=== PATIENT | female | born 1935 | race Caucasian/White ===

== ENCOUNTER 2016-07-08 11:35 | Emergency (ER) | payer OTHER, MEDICARE ==
[~2016-07-08] VITALS: Ht 149.9 cm; Wt 68.0 kg
[~2016-07-08 11:35] MED LIST: AMITRIPTYLINE H25 M1 PO; ASPIRIN EC81 M1 PO; ATENOLOL25 M1 PO; ATENOLOL50 MG PO; BENTYL10 M1 PO; CALCIUM 600600 M1 PO; CENTRUM SILVER1 TA1 PO; CEPHALEXIN500 MG PO; FLAX OIL1000 MG PO; FOLIC ACID 1 MG PO; FOLIC ACID0.4 MG PO; GARLIC OIL NA1000 MG PO; GLUCOSAMINE500 MG PO; HYDRODIURIL 2525 MG PO; ISOSORBIDE MONO60 M1 PO; LEVOTHYROXINE100 MC1 PO; LOVAZA1 GM PO; MOVE FREE ULTRA PO; NITROSTAT0.4 M1 SL; NORVASC5 M1 PO; PROTONIX40 M3 PO; RANEXA500 M1 PO; RESTORIL15 MG PO; SERTRALINE HYDR50 MG PO; SIMVASTATIN20 MG PO; TRAMADOL HCL50 M1 PO; TRAZODONE HCL50 M1 PO; VITAMIN D31000 IU PO; ZOCOR 10MG TAB10 MG PO; ZOFRAN4 M2 PO
--- NOTE | 2016-07-08 12:50 | ED MVC/FALL/TRAUMA COMPLAINT ---
History of Present Illness General Chief Complaint: Fall Stated Complaint: S/P FALL LAST PM Vital Signs & Intake/Output Vital Signs & Intake/Output Vital Signs Date Time Temp Pulse Resp B/P Pulse O2 O2 Flow FiO2 Ox Delivery Rate 07/08 1145 97.8 55 16 137/54 97 Room Air Allergies Coded Allergies: NO KNOWN ALLERGIES (04/25/16) Reconcile Medications Amlodipine (Norvasc 5MG Tab) 5 MG TAB 1 TAB PO DAILY HTN (Reported) Aspirin (Ecotrin) 81 MG ECT 1 TAB PO DAILY HEART/BLOOD (Reported) Atenolol 25 MG TAB 1 TAB PO BID BP (Reported) Calcium Carbonate (Calcium 600) 600 MG TAB 600 MG PO DAILY BONE HEALTH ( Reported) Cholecalciferol (Vitamin D3) 1,000 IU TAB 1 TAB PO DAILY SUPPLEMENT (Reported ) Dicyclomine Hydrochloride (Bentyl) 10 MG CAPSULE 1 CAP PO TID GASTROENTERITIS Folic Acid 0.4 MG TAB 1 TAB PO DAILY SUPPLEMENT (Reported) Hydrochlorothiazide (Hydrodiuril 25 MG Tab) 25 MG TAB 1 TAB PO DAILY BLOOD PRESSURE (Reported) Isosorbide Mononitrate [address] 60 MG PO DAILY ANGINA (Reported) Levothyroxine Sodium 0.1 MG TAB 1 TAB PO DAILY THYROID PROBLEMS (Reported) Multivitamin, Minerals, and (Centrum Silver) 1 TAB TAB 1 TAB PO DAILY VITAMIN SUPPORT (Reported) Nitroglycerin (Nitrostat) 0.4 MG TAB 1 TAB SL AD PRN CHEST PAIN (Reported) Ondansetron HCl (Zofran) 4 MG TABLET 1 TAB PO Q6-8P PRN NAUSEA Pantoprazole Sodium (Protonix) 40 MG TAB 1 TAB PO DAILY ACID REFLUX (Reported ) Ranolazine (Ranexa 500MG) 500 MG TAB 1 TAB PO BID ANGINA (Reported) Simvastatin (Zocor) 20 MG TAB 20 MG PO QHS CHOLESTEROL (Reported) Tramadol HCl 50 MG TABLET 1 TAB PO BIDP PRN PAIN TRAZODONE HCL (Trazodone HCl) 50 MG TAB 1 TAB PO QHS SLEEP (Reported) Triage Note: PT FELL LAST EVENING PT STATES SHE IS HAVING RIGHT KNEE PAIN NOW. PT DOES NOT REMEMBER IF SHE HIT HER HEAD OR NOT. PT HAS BEEN FALLING A LOT LATELY PER HER DAUGHTER. 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 History of MRSA: No History of VRE: No History of CDIFF: No Influenza Vaccine: 03/23/16 Surgical History Surgical History: CABG, CARDIAC STENTS Psychosocial History Who do you live with Spouse Services at Home None What is your primary language Upper Sorbian Tobacco Use: Quit >30 days ago ETOH Use: denies use Illicit Drug Use: denies illicit drug use Family History Family History, If Any: DAUGHTER Cardiac pacemaker BROTHER FH: colon cancer FH: myocardial infarction Departure Departure Condition: Stable Referrals: NABILA HOUSER,TRISTEN Barger (PCP/Family) Departure Forms: Customer Survey General Discharge Information
--- NOTE | 2016-07-08 12:54 | ED MVC/FALL/TRAUMA COMPLAINT ---
History of Present Illness General Chief Complaint: Fall Stated Complaint: S/P FALL LAST PM Source: patient, family (DAUGHTER) Exam Limitations: no limitations Vital Signs & Intake/Output Vital Signs & Intake/Output Vital Signs Date Time Temp Pulse Resp B/P Pulse O2 O2 Flow FiO2 Ox Delivery Rate 07/08 1543 97.6 53 16 137/63 94 Room Air 07/08 1145 97.8 55 16 137/54 97 Room Air ED Intake and Output 07/09 0000 07/08 1200 Intake Total Output Total Balance Patient 150 lb Weight Allergies Coded Allergies: NO KNOWN ALLERGIES (04/25/16) Reconcile Medications Amlodipine (Norvasc 5MG Tab) 5 MG TAB 1 TAB PO DAILY HTN (Reported) Aspirin (Ecotrin) 81 MG ECT 1 TAB PO DAILY HEART/BLOOD (Reported) Atenolol 25 MG TAB 1 TAB PO BID BP (Reported) Cephalexin (Keflex) 500 MG CAPSULE 1 CAP PO TID UTI Citalopram Hydrobromide (Citalopram HBr) 20 MG TABLET 1 TAB PO DAILY MENTAL HEALTH (Reported) Dicyclomine HCl 10 MG CAPSULE 1 CAP PO PRN ABD CRAMPS (Reported) Isosorbide Mononitrate [address] 60 MG PO DAILY ANGINA (Reported) Levothyroxine Sodium 0.1 MG TAB 1 TAB PO DAILY THYROID PROBLEMS (Reported) Mirtazapine 15 MG TABLET 1 TAB PO QPM SLEEP/MENTAL HEALTH (Reported) Nitroglycerin (Nitrostat) 0.4 MG TAB 1 TAB SL AD PRN CHEST PAIN (Reported) Oxycodone HCl/Acetaminophen (Percocet 5-325 MG Tablet) 5 MG-325 MG TABLET 1 TAB PO Q8 PRN PAIN Pantoprazole Sodium (Protonix) 40 MG TAB 1 TAB PO DAILY ACID REFLUX (Reported ) Ranolazine (Ranexa 500MG) 500 MG TAB 1 TAB PO BID ANGINA (Reported) Trazodone HCl 50 MG TABLET 1 TAB PO QPM SLEEP (Reported) Triage Note: PT FELL LAST EVENING PT STATES SHE IS HAVING RIGHT KNEE PAIN NOW. PT DOES NOT REMEMBER IF SHE HIT HER HEAD OR NOT. PT HAS BEEN FALLING A LOT LATELY PER HER DAUGHTER. Triage Nurses Notes Reviewed? yes HPI: Patient is an 81-year-old female presents complaining of right knee pain, left shoulder pain, headache, neck pain status post fall. Patient reports she was walking yesterday when she fell injuring her right knee. Increasing pain and swelling since the fall. Pain is currently severe, worsens with movement and palpation. Patient's daughter reports that patient has been falling frequently over the past few weeks. Patient is unsure if she struck her head when she fell. Patient was on the floor for a short period of time. Patient has not taken any medication for her symptoms prior to arrival. Patient denies lightheadedness, near syncope, syncope prior to fall. (GARIMA RODRIGUEZ) Past History Travel History Traveled to [place] past 21 day No Medical History Any Pertinent Medical History? 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 No (GARIMA RODRIGUEZ) Review of Systems Review of Systems Constitutional: Reports: no symptoms, weakness. Eyes: Reports: no symptoms. Ears, Nose, Throat, Mouth: Reports: no symptoms. Respiratory: Denies: cough, short of breath. Cardiovascular: Denies: chest pain, syncope. Gastrointestinal/Abdominal: Denies: abdominal pain, vomiting. Genitourinary: Reports: frequency (incontinence). Musculoskeletal: Reports: see HPI. Skin: Reports: no symptoms. Neurological/Psychological: Reports: headache. (GRAIMA RODRIGUEZ) Physical Exam Physical Exam General Appearance: well developed/nourished, alert, awake Head: atraumatic, normal appearance Eyes: Bilateral: normal appearance, PERRL, EOMI. Ears, Nose, Throat, Mouth: hearing grossly normal, moist mucous membrane Neck: normal inspection, supple, full range of motion Respiratory: normal breath sounds, chest non-tender, no respiratory distress, lungs clear Cardiovascular: regular rate/rhythm Peripheral Pulses: 2+ dorsalis pedis (R), 2+ dorsalis pedis (L) Gastrointestinal: soft, non-tender Back: normal inspection, normal range of motion, no vertebral tenderness Extremities: TENDERNESS AND MODERATE SWELLING RIGHT ANTERIOR KNEE. pAIN INCREASES WITH KNEE FLEXION. 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 No Severe Sepsis Present: No Septic Shock Present: No (DARRIN DING,GARIMA) Progress Differential Diagnosis: aoritic dissection, abd injury, C/T/L spine injury, ext injury, ICH, pelvis injury, pnemothorax, spinal cord injury, UTI, dehydration, electrolyte abnormality, anemia Plan of Care: Orders Procedure Date/time Status Add-on Test (ER Only) 07/08 1455 Active Straight Cath 07/08 1313 Active CULTURE,URINE 07/08 1313 Active URINALYSIS 07/08 1313 Complete COMPREHENSIVE METABOLIC PANEL 07/08 1313 Complete CBC WITHOUT DIFFERENTIAL 07/08 1313 Complete Laboratory Tests 07/08/16 1420: Urine Color SANDRITA, Urine Clarity CLDY H, Urine pH 6.5, Ur Specific [place] 1.020, Urine Protein 30 H, Urine Ketones NEG, Urine Nitrite POS H, Urine Bilirubin NEG, Urine Urobilinogen 1.0, Ur Leukocyte Esterase LARGE H, Ur Microscopic SEDIMENT EXAMINED, Urine RBC 25-50 H, Urine WBC PACKD H, Ur Epithelial Cells RARE, Urine Hemoglobin MOD H, Urine Glucose NEG 07/08/16 1401: Anion Gap 8, Estimated GFR > 60, BUN/Creatinine Ratio 20.0, Glucose 87, Calcium 9.2, Total Bilirubin 0.6, AST 18, ALT 26, Alkaline Phosphatase 85, Total Protein 6.9, Albumin 3.7, Globulin 3.2, Albumin/Globulin Ratio 1.2, CBC w Diff NO MAN DIFF REQ, RBC 4.32, MCV 89.8, MCH 29.9, RDW 14.2, MPV 8.4, Gran % 68.5, Lymphocytes % 20.6, Monocytes % 8.7, Eosinophils % 1.7, Basophils % 0.5, Absolute Granulocytes 5.9, Absolute Lymphocytes 1.8, Absolute Monocytes 0.8 H, Absolute Eosinophils 0.1, Absolute Basophils 0, PUBS MCHC 33.3 Microbiology 07/083 URINE ROUT: Urine Culture - RECD 1600: Results of labs discussed and imaging discussed with patient and her daughter. Bulky lowe dressing placed by [facility]. Patient reports continues with pain to her right knee. Patient ambulated with walker, with very slow gait. Daughter concerned that patient will not use walker at home and continue to fall. Able to bear weight on right knee. Discussed with case management to evaluate patient and speak with daughter. 1700: Seen by case management. Home health services to be set up including visiting nursing and home PT, possible home health aid. (DARRIN DING,GARIMA) Diagnostic Imaging: Viewed by Me: Radiology Read, CT Scan. Discussed w/RAD: Radiology Read, CT Scan. Radiology Impression: PATIENT: DEEDEE MOROCHO PRESENT AGE: 81 PATIENT ACCOUNT NO: [id number] : 34 LOCATION: [facility] ORDERING PHYSICIAN: GRAIMA DING SERVICE DATE: 07/08/16 EXAM TYPE: CAT - CT HEAD WO IV CONTRAST EXAMINATION: CT HEAD WITHOUT CONTRAST CLINICAL INFORMATION: Fall. Possibly Hit head. Headache. COMPARISON: None. TECHNIQUE: Contiguous axial imaging was performed from the skull base to vertex without intravenous administration of contrast. FINDINGS: There is no evidence of acute intracranial hemorrhage or territorial infarction. No abnormal mass effect or midline shift is seen. Parish to white matter differentiation is well preserved. No extra-axial fluid collections are identified. There is atrophy with prominence of the ventricles and the sulci and hypodensity of the periventricular white matter due to chronic small vessel ischemic disease. There is vascular calcifications of the internal carotid arteries bilaterally. The osseous structures and soft tissues are normal. The mastoid air cells and visualized portions of the paranasal sinuses are well aerated. IMPRESSION: No acute intracranial pathology. DICTATED BY: RADHA POSADAS MD DATE/TIME DICTATED:1458 REMOTE RECRUITER:TIM DATE/TIME TRANSCRIBED:07/08/161458 CONFIDENTIAL, DO NOT COPY WITHOUT APPROPRIATE AUTHORIZATION. <Electronically signed in Other Vendor System> SIGNED BY: RADHA POSADAS MD 07/08/16 1510, PATIENT: DEEDEE MOROCHO PRESENT AGE: 81 PATIENT ACCOUNT NO: [id number] : 34 LOCATION: [facility] ORDERING PHYSICIAN: GARIMA DING SERVICE DATE: 07/08/16 EXAM TYPE: CAT - CT CERV SPINE WO IV CONTRAST EXAMINATION: CT CERVICAL SPINE WITHOUT CONTRAST CLINICAL INFORMATION : Fall, assess for fracture or bleed. COMPARISON: None. TECHNIQUE: A noncontrast axial CT scan of the cervical spine was obtained. Coronal and sagittal reformatted images were generated at the acquisition workstation. DLP: Total 898.8 mGy-cm. (Including head CT). FINDINGS: There is a degenerative anterolisthesis of C4 on C5 secondary to severe facet arthropathy. There is narrowing of intervertebral disc height at C5-C6 with marginal endplate changes. There are no compression fractures and vertebral body heights are maintained. Bone mineralization appears mildly diffusely decreased. The prevertebral soft tissues are unremarkable. There are atheromatous calcifications of the parotid arteries. 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 The lateral masses of C1 and C2 are normally aligned in the dens is intact. Atlantooccipital alignment is maintained. There is multilevel foraminal narrowing from uncovertebral osteophytosis and facet arthropathy. The cervicomedullary junction and spinal cord are grossly unremarkable. The imaged lung apices are clear. IMPRESSION: 1. There are no acute fractures or subluxations. 2. Multilevel spondylosis is demonstrated with foraminal narrowing and facet arthropathy. There is a degenerative anterolisthesis of C4 on C5 secondary to facet arthropathy. DICTATED BY: LALA ENRIQUEZ MD DATE/TIME DICTATED: 07/08/161458 REMOTE RECRUITER:TIM DATE/TIME TRANSCRIBED:07/08/161458 CONFIDENTIAL, DO NOT COPY WITHOUT APPROPRIATE AUTHORIZATION. <Electronically signed in Other Vendor System> SIGNED BY: LALA ENRIQUEZ MD 07/08/16 1509, PATIENT: DEEDEE MOROCHO PRESENT AGE: 81 PATIENT ACCOUNT NO: [id number] : 34 LOCATION: [facility] ORDERING PHYSICIAN: GARIMA DING SERVICE DATE: 07/08/16 EXAM TYPE: RAD - XRY-KNEE COMPLETE RIGHT; XRY-SHOULDER COMPLETE-LEFT EXAMINATION: XR KNEE, RIGHT XR SHOULDER, LEFT CLINICAL INFORMATION: Fall, pain. COMPARISON: None. TECHNIQUE: Right knee 4 views. Left shoulder 3 views. FINDINGS: Right knee: Moderate to severe medial compartment arthritis with joint space loss, marginal osteophytes, subchondral sclerosis. There is slight undulation of the articular surface of the medial femoral condyle. This may be chronic in the setting of degenerative changes. Moderate lateral compartment arthritis with marginal osteophytes. Chondrocalcinosis in lateral compartment. At least mild patellofemoral arthritis. Bones are osteopenic. No acute fractures are seen. Small effusion. Quadriceps tendon insertional spurring. Left shoulder: Humeral head articulates with the glenoid. There appears be mild glenohumeral joint degeneration. There is lucency and spurring in the lateral humeral head/greater tuberosity, appearing degenerative. Mild to moderate AC joint arthritis. No evidence of acute fracture. Small density adjacent to inferior glenoid, from spurring or perhaps loose body in this region. No suspicious soft tissue calcification. IMPRESSION: Right knee: 1. Tricompartment arthritis. Moderate to severe medial compartment arthritis. Small effusion. 2. Slight undulation of the articular surface of the medial femoral condyle. This may be related to the arthritic changes. Fracture superimposed on chronic changes is difficult to exclude. Close clinical correlation. Further evaluation with MRI as clinically warranted. Left shoulder: 1. No radiographic evidence of acute fracture. 2. Mild glenohumeral joint and AC joint arthritis. 3. Degenerative changes in the region of the greater tuberosity. DICTATED BY: VAIBHAV PEREZ MD DATE/TIME DICTATED:07/08/161425 REMOTE RECRUITER:TIM DATE/TIME TRANSCRIBED:07/08/161425 CONFIDENTIAL, DO NOT COPY WITHOUT APPROPRIATE AUTHORIZATION. <Electronically signed in Other Vendor System> SIGNED BY: VAIBHAV PEREZ MD 07/08/16 8498 (GARIMA RODRIGUEZ) Departure Departure Disposition: HOME OR SELF CARE Condition: Stable Clinical Impression Primary Impression: Urinary tract infection Qualifiers: Urinary tract infection type: site unspecified Hematuria presence: without hematuria Qualified Code: N39.0 - Urinary tract infection, site not specified Secondary Impressions: Left shoulder strain Qualifiers: Encounter type: initial encounter Qualified Code: S46.912A - Strain of unspecified muscle, fascia and tendon at shoulder and upper arm level, left arm, initial encounter Right knee sprain Qualifiers: Encounter type: initial encounter Involved ligament of knee: unspecified ligament Qualified Code: S83.91XA - Sprain of unspecified site of right knee, initial encounter Referrals: NABILA HOUSER,TRISTEN Barger (PCP/Family) Additional Instructions: Follow up with your orthopedist at [facility] for further evaluation of the knee pain and shoulder pain. Follow up with Dr. Hall this week for further evaluation of the frequent falls. Rest, ice for 20 minutes 4-5 times a day, wear the bulky wrap to the right knee for support. Use the walker to aid with ambulation. Departure Forms: Customer Survey General Discharge Information Prescriptions: Current Visit Scripts Cephalexin (Keflex) 1 CAP PO TID #21 CAP Oxycodone HCl/Acetaminophen (Percocet 5-325 MG Tablet) 1 TAB PO Q8 PRN PAIN #10 TAB (GARIMA RODRIGUEZ) [employer] Co-Sign Statement Statement: ED Attending supervision documentation- [X] I saw and evaluated the patient. I have also reviewed all the pertinent lab results and diagnostic results. I agree with the findings and the plan of care as documented in the PA's[employer]'s documentation. [X] I have reviewed the ED Record and agree with the PA's[employer]'s documentation. [] Additions or exceptions (if any) to the PAs[employer]'s note and plan are summarized below: [] (MARK HOUSER,LEROY)
[2016-07-08 14:11] LABS: ABSOLUTE BASOPHIL COUNT 0 /CUMM (0.0-0.2); ABSOLUTE EOSINOPHIL COUNT 0.1 /CUMM (0.0-0.7); ABSOLUTE GRANULOCYTE CT 5.9 /CUMM (1.4-6.5); ABSOLUTE LYMPH COUNT 1.8 /CUMM (1.2-3.4); ABSOLUTE MONOCYTE COUNT 0.8 /CUMM (0.10-0.60); BASOPHIL % 0.5 % (0.0-2.0); EOSINOPHIL % 1.7 % (0-5); GRANULOCYTE % 68.5 % (42.2-75.2); HEMATOCRIT 38.8 % (37-47); MEAN CORPUSCULAR HGB 29.9 PG (27.0-31.0); MEAN CORPUSCULAR HGB CONC 33.3 G/DL (33.0-37.0); MEAN CORPUSCULAR VOLUME 89.8 FL (81.0-99.0); MEAN PLATELET VOLUME 8.4 FL (7.4-10.4); PLATELET COUNT 194 /CUMM (130-400); RBC DISTRIBUTION WIDTH 14.2 % (11.5-14.5); RED BLOOD CELL CT 4.32 /CUMM (4.20-5.40); WHITE BLOOD CELL COUNT 8.7 /CUMM (4.8-10.8)
--- NOTE | 2016-07-08 15:08 | RADIOLOGY REPORT ---
EXAMINATION: XR KNEE, RIGHT XR SHOULDER, LEFT CLINICAL INFORMATION: Fall, pain. COMPARISON: None. TECHNIQUE: Right knee 4 views. Left shoulder 3 views. FINDINGS: Right knee: Moderate to severe medial compartment arthritis with joint space loss, marginal osteophytes, subchondral sclerosis. There is slight undulation of the articular surface of the medial femoral condyle. This may be chronic in the setting of degenerative changes. Moderate lateral compartment arthritis with marginal osteophytes. Chondrocalcinosis in lateral compartment. At least mild patellofemoral arthritis. Bones are osteopenic. No acute fractures are seen. Small effusion. Quadriceps tendon insertional spurring. Left shoulder: Humeral head articulates with the glenoid. There appears be mild glenohumeral joint degeneration. There is lucency and spurring in the lateral humeral head/greater tuberosity, appearing degenerative. Mild to moderate AC joint arthritis. No evidence of acute fracture. Small density adjacent to inferior glenoid, from spurring or perhaps loose body in this region. No suspicious soft tissue calcification. IMPRESSION: Right knee: 1. Tricompartment arthritis. Moderate to severe medial compartment arthritis. Small effusion. 2. Slight undulation of the articular surface of the medial femoral condyle. This may be related to the arthritic changes. Fracture superimposed on chronic changes is difficult to exclude. Close clinical correlation. Further evaluation with MRI as clinically warranted. Left shoulder: 1. No radiographic evidence of acute fracture. 2. Mild glenohumeral joint and AC joint arthritis. 3. Degenerative changes in the region of the greater tuberosity.
--- NOTE | 2016-07-08 15:09 | CT SCAN REPORT ---
EXAMINATION: CT CERVICAL SPINE WITHOUT CONTRAST CLINICAL INFORMATION: Fall, assess for fracture or bleed. COMPARISON: None. TECHNIQUE: A noncontrast axial CT scan of the cervical spine was obtained. Coronal and sagittal reformatted images were generated at the acquisition workstation. DLP: Total 898.8 mGy-cm. (Including head CT). FINDINGS: There is a degenerative anterolisthesis of C4 on C5 secondary to severe facet arthropathy. There is narrowing of intervertebral disc height at C5-C6 with marginal endplate changes. There are no compression fractures and vertebral body heights are maintained. Bone mineralization appears mildly diffusely decreased. The prevertebral soft tissues are unremarkable. There are atheromatous calcifications of the parotid arteries. 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 The lateral masses of C1 and C2 are normally aligned in the dens is intact. Atlantooccipital alignment is maintained. There is multilevel foraminal narrowing from uncovertebral osteophytosis and facet arthropathy. The cervicomedullary junction and spinal cord are grossly unremarkable. The imaged lung apices are clear. IMPRESSION: 1. There are no acute fractures or subluxations. 2. Multilevel spondylosis is demonstrated with foraminal narrowing and facet arthropathy. There is a degenerative anterolisthesis of C4 on C5 secondary to facet arthropathy.
--- NOTE | 2016-07-08 15:10 | CT SCAN REPORT ---
EXAMINATION: CT HEAD WITHOUT CONTRAST CLINICAL INFORMATION: Fall. Possibly Hit head. Headache. COMPARISON: None. TECHNIQUE: Contiguous axial imaging was performed from the skull base to vertex without intravenous administration of contrast. FINDINGS: There is no evidence of acute intracranial hemorrhage or territorial infarction. No abnormal mass effect or midline shift is seen. Parish to white matter differentiation is well preserved. No extra-axial fluid collections are identified. There is atrophy with prominence of the ventricles and the sulci and hypodensity of the periventricular white matter due to chronic small vessel ischemic disease. There is vascular calcifications of the internal carotid arteries bilaterally. The osseous structures and soft tissues are normal. The mastoid air cells and visualized portions of the paranasal sinuses are well aerated. IMPRESSION: No acute intracranial pathology.
[2016-07-08 15:43] VITALS: BP 137/63
[2016-07-08] MEDS ORDERED: CITALOPRAM HBR20 MG PO (15:50)
[2016-07-08] MEDS ORDERED: MIRTAZAPINE15 M2 PO (15:52)
[2016-07-08] MEDS ORDERED: DICYCLOMINE HCL10 M1 PO (15:53)
[2016-07-08] MEDS ORDERED: PERCOCET 5-3251 EACH PO (16:57)
[2016-07-08] MEDS ORDERED: KEFLEX500 M1 PO (16:57)
== END 2016-07-08 17:00 ==
LOC: ERH 11:35
PROVIDERS: Physician Assistant
DX: S83.91XA Sprain of unspecified site of right knee, initial encounter (principal); S46.912A Strain of unspecified muscle, fascia and tendon at shoulder and upper arm level, left arm, initial encounter; N39.0 Urinary tract infection, site not specified; M54.2 Cervicalgia; W19.XXXA Unspecified fall, initial encounter; Y93.01 Activity, walking, marching and hiking
CPT/HCPCS: 73030-LT; 73562-RT; 81001; 87086

== ENCOUNTER 2016-07-09 12:40 | Emergency (ER) | payer OTHER, MEDICARE ==
[~2016-07-09] VITALS: Ht 149.9 cm; Wt 64.0 kg
[~2016-07-09 12:40] MED LIST changes: +CITALOPRAM HBR20 MG PO; +DICYCLOMINE HCL10 M1 PO; +KEFLEX500 M1 PO; +MIRTAZAPINE15 M2 PO; +PERCOCET 5-3251 EACH PO
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
[2016-07-09 16:18] VITALS: BP 142/70
== END 2016-07-09 16:19 ==
LOC: ERH 12:40
DX: N39.0 Urinary tract infection, site not specified (principal)
CPT/HCPCS: 97116-GP; 97161-GP; G8978-GP; G8979-GP; G8980-GP

== ENCOUNTER 2016-09-20 15:55 | Emergency (ER) | payer OTHER, MEDICARE ==
[~2016-09-20] VITALS: Ht 149.9 cm; Wt 68.0 kg
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
[2016-09-20 18:07] VITALS: BP 115/84
== END 2016-09-20 18:08 ==
LOC: ERH 15:55
DX: S16.1XXA Strain of muscle, fascia and tendon at neck level, initial encounter (principal); V49.50XA Passenger injured in collision with unspecified motor vehicles in traffic accident, initial encounter; Y93.9 Activity, unspecified; Y92.488 Other paved roadways as the place of occurrence of the external cause

== ENCOUNTER 2016-09-22 14:15 | Emergency (ER) | payer OTHER, MEDICARE ==
[~2016-09-22] VITALS: Ht 151.1 cm; Wt 68.0 kg
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
[2016-09-22 16:04] VITALS: BP 125/68
== END 2016-09-22 16:05 ==
LOC: ERH 14:15
DX: S20.211A Contusion of right front wall of thorax, initial encounter (principal); R07.9 Chest pain, unspecified; V89.2XXD Person injured in unspecified motor-vehicle accident, traffic, subsequent encounter

== ENCOUNTER 2016-11-10 19:55 | Inpatient (IN) | payer OTHER, MEDICARE ==
[~2016-11-10] VITALS: Ht 149.9 cm; Wt 64.9 kg
--- NOTE | 2016-11-10 20:01 | ED CARDIAC/CP/PALPITATIONS ---
See Addendum History of Present Illness General Chief Complaint: Chest Pain Stated Complaint: "PER EMS CP" Source: patient, EMS Exam Limitations: no limitations Vital Signs & Intake/Output Vital Signs & Intake/Output Vital Signs Date Time Temp Pulse Resp B/P B/P Pulse O2 O2 Flow FiO2 Mean Ox Delivery Rate 11/10 2204 97.4 67 18 147/72 94 Room Air 11/10 2001 97.8 67 18 138/65 96 Allergies Coded Allergies: acetaminophen (PER MAR - UNKNOWN REACTION 11/10/16) Reconcile Medications Amlodipine Besylate (Norvasc) 5 MG TABLET 1 TAB PO DAILY HTN (Reported) Aspirin (Ecotrin*) 81 MG TABLET.DR 1 TAB PO DAILY HEART HEALTH (Reported) Atenolol 25 MG TABLET 1 TAB PO DAILY BP (Reported) Bisacodyl (Dulcolax) 10 MG SUPP.RECT 1 SUP RC PRN CONSTIPATION (Reported) Isosorbide Mononitrate (Isosorbide Mononitrate ER) 60 MG TAB.ER.24H 1 TAB PO DAILY ANGINA (Reported) Levothyroxine Sodium 100 MCG TABLET 1 TAB PO DAILY AC THYROID (Reported) Magnesium Hydroxide (Milk Of Magnesia) 400 MG/5 ML ORAL.SUSP 30 ML PO PRN CONSTIPATION (Reported) Mirtazapine 15 MG TABLET 1 TAB PO QPM SLEEP/MENTAL HEALTH (Reported) Na Phos,M-B/Na Phos,Di-Ba (Fleet Enema) 19 GRAM-7 GRAM/118 ML ENEMA 1 E RC PRN CONSTIPATION (Reported) Nitroglycerin (Nitrostat) 0.4 MG TAB.SUBL 1 TAB SL AD PRN CHEST PAIN ( Reported) 1st sign of attack; may repeat every 5 minutes until relief; if pain persists after 3 tablets in 15 minutes, prompt medical att Pantoprazole Sodium (Protonix) 40 MG TABLET.DR 1 TAB PO DAILY ACID REFLUX ( Reported) Ranolazine (Ranexa) 500 MG TAB.ER.12H 1 TAB PO BID ANGINA (Reported) Sertraline HCl 50 MG TABLET 1 TAB PO DAILY MENTAL HEALTH (Reported) Simvastatin (Simvastatin*) 20 MG TABLET 1 TAB PO QPM CHOLESTEROL (Reported) Trazodone HCl 50 MG TABLET 1 TAB PO TID AGITATION (Reported) Triage Nurses Notes Reviewed? yes Onset: Gradual Duration: hour(s):, waxing and waning Timing: single episode today Location: central Radiation: LEFT AND RIGHT ARM Activities at Onset: none Nitro Today/Relief: 0.4 mg x 3, provided by EMS, complete relief Aspirin Today: 325 mg x 1, provided by EMS Associated Symptoms: diaphoresis, dizziness HPI: 81 yo woman h/o cabg, cad, presents with several hours of sub sternal chest pressure, intermittent, since this morning, with radiation down left arm. 911 was called. The medics gave her nitro x 3, with complete resolution. Asa 325mg x 1 given by medics. She reports no pain, no diaphoresis, no shortness of breath at present. Past History Travel History Traveled to [place] past 21 day No Medical History Any Pertinent Medical History? 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 No Review of Systems Review of Systems Constitutional: Reports: no symptoms. EENTM: Reports: no symptoms. Respiratory: Reports: no symptoms. Cardiovascular: Reports: no symptoms. GI: Reports: no symptoms. Genitourinary: Reports: no symptoms. Musculoskeletal: Reports: no symptoms. Skin: Reports: no symptoms. Neurological/Psychological: Reports: no symptoms. Hematologic/Endocrine: Reports: no symptoms. Immunologic/Allergic: Reports: no symptoms. All Other Systems: Reviewed and Negative Physical Exam Physical Exam General Appearance: well developed/nourished, mild distress Head: atraumatic, normal appearance Eyes: Bilateral: normal appearance. Ears, Nose, Throat: normal pharynx Neck: normal inspection, supple, full range of motion Respiratory: normal breath sounds Cardiovascular: regular rate/rhythm Gastrointestinal: normal bowel sounds Back: normal inspection, normal range of motion Extremities: normal inspection, normal capillary refill, bilateral 2+ non pitting edema Neurologic/Psych: no motor/sensory deficits, awake, alert, oriented x 3 Skin: intact, normal color, warm/dry Core Measures ACS in differential dx? Yes ASA ordered for poss ACS? Yes-ordered, PT RECEIVED ASPIRIN EN ROUTE VIA MEDICS. Severe Sepsis Present: No Septic Shock Present: No Progress Differential Diagnosis: AMI, unstable angina Plan of Care: Orders Procedure Date/time Status URINALYSIS 11/10 2245 Complete EKG 11/10 2026 Active TROPONIN LEVEL 11/10 2000 Complete PARTIAL THROMBOPLASTIN TIME 11/10 2000 Complete PROTHROMBIN TIME 11/10 2000 Complete D-DIMER 11/10 2000 Complete COMPREHENSIVE METABOLIC PANEL 11/10 2000 Complete CBC WITHOUT DIFFERENTIAL 11/10 2000 Complete EKG 11/10 1957 Active Current Medications Sig/Blanka Start time Last Medication Dose Stop Time Status Admin Heparin Sodium 25,000 UNIT Q24H 11/10 2229 UNVr (Porcine) (Heparin) Sodium Chloride 500 ML Laboratory Tests 11/10/162244: Urine Color YEL, Urine Clarity HAZY H, Urine pH 6.0, Ur Specific [place] <= 1.005, Urine Protein NEG, Urine Ketones NEG, Urine Nitrite POS H, Urine Bilirubin NEG, Urine Urobilinogen 0.2, Ur Leukocyte Esterase LARGE H, Ur Microscopic SEDIMENT EXAMINED, Urine RBC RARE, Urine WBC 15-25 H, Ur Epithelial Cells FEW, Urine Bacteria MANY H, Hyaline Casts RARE H, Urine Mucus FEW, Urine Hemoglobin NEG, Urine Glucose NEG 11/10/162033: Anion Gap 12, Estimated GFR 60, BUN/Creatinine Ratio 15.6, Glucose 97, Calcium 9.0, Total Bilirubin 0.4, AST 15, ALT 33, Alkaline Phosphatase 103, Troponin I < 0.01, Total Protein 6.6, Albumin 3.6, Globulin 3.0, Albumin/Globulin Ratio 1.2, PT 11.9, INR 1.13, APTT 35, D-Dimer 345 H, CBC w Diff NO MAN DIFF REQ, RBC 3.92 L, MCV 92.0, MCH 30.4, RDW 13.0, MPV 8.3, Gran % 57.8, Lymphocytes % 26.8, Monocytes % 11.7 H, Eosinophils % 2.7, Basophils % 1.0, Absolute Granulocytes 4.6, Absolute Lymphocytes 2.1, Absolute Monocytes 0.9 H, Absolute Eosinophils 0.2, Absolute Basophils 0.1, PUBS MCHC 33.0 Diagnostic Imaging: Viewed by Me: Radiology Read. Discussed w/RAD: Radiology Read. CXR Impression: vascular congestion... full report below. Initial ED EKG: AFIB, new onset afib compared to prior Repeat EKG: unchanged Comments: PATIENT: DEEDEE MOROCHO PRESENT AGE: 81 PATIENT ACCOUNT NO: [id number] : 34 LOCATION: [facility] ORDERING PHYSICIAN: BELIA PINK MD SERVICE DATE: 11/10/16 EXAM TYPE: RAD - XRY-PORTABLE CHEST XRAY EXAMINATION: CHEST 1 VIEW CLINICAL INFORMATION: Chest pain. COMPARISON: 09/02/2015. TECHNIQUE: An AP view of the chest is provided. FINDINGS: The cardiac silhouette is stable. Intact midline sternal wires are present. There is interstitial prominence present throughout both lungs. The mediastinal and hilar contours are unremarkable. There are neither pleural effusions nor pneumothoraces. There are no consolidations. The osseous structures are unremarkable. IMPRESSION: Interstitial prominence throughout both lungs likely insurance sales representative of vascular congestion. No consolidations. DICTATED BY: UVALDO WATERS MD DATE/TIME DICTATED:11/10/162115 OLIVE GROWER:TIM DATE/TIME TRANSCRIBED:11/10/162115 CONFIDENTIAL, DO NOT COPY WITHOUT APPROPRIATE AUTHORIZATION. <Electronically signed in Other Vendor System> SIGNED BY: UVALDO WATERS MD 11/10/162119 Departure Departure Disposition: HOME OR SELF CARE Condition: Stable Clinical Impression Primary Impression: Unstable angina Secondary Impressions: Congestive heart failure, New onset atrial fibrillation Referrals: NABILA HOUSER,TRISTEN Barger (PCP/Family) Departure Forms: Customer Survey General Discharge Information Comments 11/10/16, 22:20... discussed with dr. enriquez... will start pt on heparin for new onset afib... pt also with nitro reponsive chest pain consistent with unstable angina. Admission Note Spoke With: PREETI MUJICA MD Documentation of Exam: Documentation of any treatments & extenuating circumstances including Concerns Regarding Discharge (functional status, medication knowledge or non-compliance, living conditions, etc.) that warrant an admission rather than observation: PT WITH CAD AND NITRO RESPONSIVE CHEST PAIN... ALSO WITH NEW ONSET AFIB. MILD CHF.... PT MERITS MONITORING, RULE OUT, MEDICAL OPTIMIZATION, HEPARIN. Critical Care Note Critical Care Note Critical Care Time: 30-74 min
--- NOTE | 2016-11-10 20:03 | NUR ---
RECEIVED 81 YO FEMALE BIBA FROM [facility] WITH C/O INTERMITTENT LEFT SIDED CHEST PAIN X 3 DAYS, RADIATING TO LEFT ARM. PT WAS MEDICATED AT [facility] WITH NTG S/L X 3 WITH COMPLETE RELIEF OF PAIN. PT MEDICATED WITH 324 MG ASA PO BY PARAMEDICS. PT CURRENTLY DENIES CHEST PAIN OR SHORTNESS OF BREATH.
--- NOTE | 2016-11-10 20:04 | NUR ---
PT EVALUATED BY DR PINK
[2016-11-10] MEDS ORDERED: SERTRALINE HCL50 MG PO (20:13)
[2016-11-10] MEDS ORDERED: SIMVASTATIN20 M2 PO (20:13)
[2016-11-10] MEDS ORDERED: MILK OF MA400 MG/52 PO (20:16)
[2016-11-10] MEDS ORDERED: FLEET ENEMA133 ML RC (20:17)
[2016-11-10] MEDS ORDERED: DULCOLAX10 M1 RC (20:17)
--- NOTE | 2016-11-10 20:36 | NUR ---
PT BLOOD SENT TO THE LAB LAV,SST,BLUE
[2016-11-10 20:55] LABS: ABSOLUTE BASOPHIL COUNT 0.1 /CUMM (0.0-0.2); ABSOLUTE EOSINOPHIL COUNT 0.2 /CUMM (0.0-0.7); ABSOLUTE GRANULOCYTE CT 4.6 /CUMM (1.4-6.5); ABSOLUTE LYMPH COUNT 2.1 /CUMM (1.2-3.4); ABSOLUTE MONOCYTE COUNT 0.9 /CUMM (0.10-0.60); EOSINOPHIL % 2.7 % (0-5); GRANULOCYTE % 57.8 % (42.2-75.2); HEMATOCRIT 36.1 % (37-47); MEAN CORPUSCULAR HGB 30.4 PG (27.0-31.0); MEAN PLATELET VOLUME 8.3 FL (7.4-10.4); PLATELET COUNT 214 /CUMM (130-400); RED BLOOD CELL CT 3.92 /CUMM (4.20-5.40); WHITE BLOOD CELL COUNT 7.9 /CUMM (4.8-10.8)
[2016-11-10 21:15] LABS: PT 11.9 SEC (9.4-12.5); PTT 35 SEC (25-37)
--- NOTE | 2016-11-10 21:20 | RADIOLOGY REPORT ---
EXAMINATION: CHEST 1 VIEW CLINICAL INFORMATION: Chest pain. COMPARISON: 09/02/2015. TECHNIQUE: An AP view of the chest is provided. FINDINGS: The cardiac silhouette is stable. Intact midline sternal wires are present. There is interstitial prominence present throughout both lungs. The mediastinal and hilar contours are unremarkable. There are neither pleural effusions nor pneumothoraces. There are no consolidations. The osseous structures are unremarkable. IMPRESSION: Interstitial prominence throughout both lungs likely representative phlebotomy services of vascular congestion. No consolidations.
--- NOTE | 2016-11-10 22:12 | NUR ---
RESTING COMF STILL DENIES CP AT THIS TIME BREATHING UNLABORED
--- NOTE | 2016-11-10 22:47 | NUR ---
PT OFF BEDPAN, URINE TRIO SENT
--- NOTE | 2016-11-11 00:41 | NUR ---
RECTAL EXAM NEG PER DR PINK HEPARIN BOLUS FB HEPARIN DRIP. PT REMIANS CONFUSED ABOUT CIRCUMSTANCES SURROUNDING ADMISSION. PT DENIES CP OR SOB. DIAPER REMOVED, ON BEDPAN.
--- NOTE | 2016-11-11 01:15 | History & Physical ---
RAINA OLIVAS 11/11/16 0114: General Information and HPI MD Statement: I have seen and personally examined DEEDEE MOROCHO and documented this H&P. The patient is a 81 year old F who presented with a patient stated chief complaint of [chest pain]. Source of Information: old records, patient giving very vague history Exam Limitations: unable to give history History of Present Illness: This is a 81-year-old female, nonsmoker with past medical history of hypertension, hyperlipidemia coronary artery disease status post stent and CABG, right subclavian stenosis, hypothyroidism, ITP, colonic resection (in the setting of diverticulitis) part in by ambulance from [place] with chief complain of worsening chest pain. Chest pain was gradual in onset, waxing and waning, the pain was present in both the arms as well, she had one single episode today, however she has been having pain on and off since last 3 days however today the pain was relieved by 3 times of nitroglycerin been provided by the EMS. She also complained of associated diaphoresis and dizziness. He was given one time of 325 mg aspirin by the paramedics. She was started on heparin and she was found to be in new onset atrial fibrillation. Allergies/Medications Allergies: Coded Allergies: acetaminophen (PER AUG - UNKNOWN REACTION 11/10/16) Home Med list Amlodipine Besylate (Norvasc) 5 MG TABLET 1 TAB PO DAILY HTN (Reported) Aspirin (Ecotrin*) 81 MG TABLET.DR 1 TAB PO DAILY HEART HEALTH (Reported) Atenolol 25 MG TABLET 1 TAB PO DAILY BP (Reported) Bisacodyl (Dulcolax) 10 MG SUPP.RECT 1 SUP RC PRN CONSTIPATION (Reported) Isosorbide Mononitrate (Isosorbide Mononitrate ER) 60 MG TAB.ER.24H 1 TAB PO DAILY ANGINA (Reported) Levothyroxine Sodium 100 MCG TABLET 1 TAB PO DAILY AC THYROID (Reported) Magnesium Hydroxide (Milk Of Magnesia) 400 MG/5 ML ORAL.SUSP 30 ML PO PRN CONSTIPATION (Reported) Mirtazapine 15 MG TABLET 1 TAB PO QPM SLEEP/MENTAL HEALTH (Reported) Na Phos,M-B/Na Phos,Di-Ba (Fleet Enema) 19 GRAM-7 GRAM/118 ML ENEMA 1 E RC PRN CONSTIPATION (Reported) Nitroglycerin (Nitrostat) 0.4 MG TAB.SUBL 1 TAB SL AD PRN CHEST PAIN ( Reported) 1st sign of attack; may repeat every 5 minutes until relief; if pain persists after 3 tablets in 15 minutes, prompt medical att Pantoprazole Sodium (Protonix) 40 MG TABLET.DR 1 TAB PO DAILY ACID REFLUX ( Reported) Ranolazine (Ranexa) 500 MG TAB.ER.12H 1 TAB PO BID ANGINA (Reported) Sertraline HCl 50 MG TABLET 1 TAB PO DAILY MENTAL HEALTH (Reported) Simvastatin (Simvastatin*) 20 MG TABLET 1 TAB PO QPM CHOLESTEROL (Reported) Trazodone HCl 50 MG TABLET 1 TAB PO TID AGITATION (Reported) Compliance With Home Meds: UNKNOWN Past History Travel History Traveled to [place] past 21 day No Medical History Neurological: NONE EENT: AGUA CALIENTE Cardiovascular: STENTS CABG Respiratory: NONE Gastrointestinal: diverticulitis, COLON RESECTION Hepatic: NONE Renal: NONE Musculoskeletal: NONE, PSEUDOGOUT Psychiatric: anxiety Endocrine: hypothyroidism Blood Disorders: ITP Cancer(s): NONE 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 [facility] Who Do You Live With? spouse Services at Home: None Primary Language: Algerian Smoking Status: Unknown If Ever Smoked ETOH Use: denies use Illicit Drug Use: denies illicit drug use Functional Ability ADLs Independent: dressing, eating, toileting, bathing. Ambulation: independent IADLs Independent: shopping, housework, finances, food prep, telephone, transportation , medication admin. Review of Systems Review of Systems Constitutional: Reports: malaise, weakness. Denies: chills, diaphoresis, fever, unexplained weight loss. EENTM: Denies: blurred vision, double vision, visual changes, eye pain. Cardiovascular: Reports: chest pain, peripheral edema. Denies: edema, orthopena, palpitations, syncope. Respiratory: Denies: cough, hemoptysis, orthopnea, short of breath, sputum production, stridor, wheezing. GI: Denies: abdominal pain, bloating, constipation, diarrhea. Genitourinary: Reports: no symptoms. Musculoskeletal: Reports: no symptoms. Skin: Reports: no symptoms. Neurological/Psychological: Reports: no symptoms. Exam & Diagnostic Data Last 24 Hrs of Vital Signs/I&O Vital Signs Date Time Temp Pulse Resp B/P B/P Pulse O2 O2 Flow FiO2 Mean Ox Delivery Rate 11/10 2204 97.4 67 18 147/72 94 Room Air 11/10 2001 97.8 67 18 138/65 96 Intake & Output 11/11 0800 11/11 0000 11/10 1600 Intake Total Output Total 220 Balance -220 Output, Urine 220 Patient 68.039 kg Weight Weight Estimated Measurement Method Physical Exam General Appearance Alert, Oriented X3, Moderate Distress, very unclear history, vague historian Skin No Rashes, No Breakdown Skin Temp/Moisture Exam: Warm/Dry Sepsis Skin Exam (color): Normal for Ethnicity HEENT Atraumatic, PERRLA, EOMI Neck Supple, No JVD Cardiovascular Normal S1, Normal S2, No Murmurs, irregularly irregular Lungs Clear to Auscultation, Normal Air Movement Abdomen Normal Bowel Sounds, Soft, No Tenderness, No Hepatospenomegaly Extremities mild edema 1+ Vascular Normal Pulses Diagnostic Data EKG Results ?? 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 No consolidations. Assessment/Plan Assessment: In summary, This is a 81-year-old female, nonsmoker with past medical history of hypertension, hyperlipidemia coronary artery disease status post stent and CABG, right subclavian stenosis, hypothyroidism, ITP, colonic resection (in the setting of diverticulitis) part in by ambulance from [place] with chief complain of worsening chest pain relieved with nitroglycerine provided by EMS. Vitals on admission temperature of 97.8, pulse of 67, respiration of 18, blood pressure 147/72, she was 96% saturating on room air. Remained pain-free after receiving the nitroglycerin, Pt was found to have new onset atrial fibrillation while at the emergency department. Count of 7.9, H/H of 11.9/36.1, platelet of 114. LFTs normal, initial set of troponin negative. Echocardiogram in August 2015 normal left ventricular size, EF of 60-65%, no obvious wall motion abnormalities. X-ray showed interstitial prominence throughout both lungs likely it is presently vascular congestion. She received one time of IV Lasix 20 mg at the emergency department. Problem list along with assessment and plan. Problem #1 unstable angina. Problem #2 new onset atrial fibrillation. Problem #3 evidence of vascular congestion on chest x-ray. Problem #4 to rule out ACS. #5 history of hypothyroidism. Problem #6 history of hypertension. Problem #7 history of coronary artery disease status post stent. Problem #8 depression, anxiety, sleep disorder. Problem # 9 Elevated prbnp,Diastolic failure * ct to monitor intakes and outputs. * ct telemetry monitoring * CHADSVASC2 score of 5 ,high risk, oral AC recommended, * Ct iv heparin for Ac for opal, rate under control * Ct to trend troponin/ ekg rule out ACS. * NG prn for chest pain * Cardio consult in am with Dr Espinoza group. * Keep Mg >2 and K > 4 * Ct ASA from AM * ct liptoir from am * Check thyroid functino tests. * Ct trazdone at bedtime. * Ct mritazapine. * Ct atenolol for HTN,monitor BP closely. * Ct norvasc for htn from AM. * Patient recieved one time iv lasix, repeat cxr latter for resoulation of cognestion, further diurese with 20 mg iv lasix. Mild,mod,severe PP FC DVT px iv heparin heart healthy diet. As Ranked By This Provider Problem List: 1. Chest pain, atypical 2. Congestive heart failure 3. New onset atrial fibrillation 4. Unstable angina Core Measures/Miscellaneous Acute Coronary Syndrome ACS Diagnosis: No Cerebrovascular Accident CVA/TIA Diagnosis: No Congestive Heart Failure CHF Diagnosis: No Venous Thromboembolism VTE Risk Factors: Age > 40 No [facility] VTE prophylaxis d/t: No contraindications No VTE Pharm Prophylaxis d/t: No contraindications VTE Diagnosis: No VTE Type: NONE VTE Confirmed by (Test): NONE Severe Sepsis Severe Sepsis Present: No Septic Shock Septic Shock Present: No Miscellaneous Documentation Attending Case Discussed With: TRISTEN DAHL MD Primary Care Physician: TRISTEN DAHL MD Patient sees these Specialists Dr espinoza Level of Patient Care: Telemetry Resident Review Statement Resident Statement: admitted by resident TRISTEN DAHL MD 11/11/16 1555: Attending MD Review Statement Attending Statement Attending MD Statement: examined this patient, discuss w/resident/PA/CASKET ASSEMBLER METAL, agreed w/resident/PA/CASKET ASSEMBLER METAL, discussed with family, reviewed EMR data (avail), discussed with nursing, discussed with case mgmt, reviewed images, amended to note Attending Assessment/Plan: Seen and examined indepentely History and other data as above 81-year-old woman with a past medical history of dementia, hypertension, hyperlipidemia, coronary artery disease (status post remote bypass surgery), peripheral vascular disease. She presented to our emergency room in transfer from her extended care facility secondary to symptoms of chest discomfort, and was found to be in atrial fibrillation (new onset) as well as evidence for mild congestive heart failure ISSUES Atrial fibrillation: new onset The patient has a significantly elevated [id number] score and would benefit from anticoagulation; has high fall risk however Chest discomfort: conservative mgt for now and rule out mi We will attempt to increase her beta nneka regimen and may add long-acting nitrates if necessary. Vascular congestion on chest x-ray, elevated BNP: Acute diastolic chf lasix echo cardio eval noted and appretiated WIll follow
--- NOTE | 2016-11-11 02:22 | NUR ---
2AM TROP DRAWN AND SENT TO LAB.
--- NOTE | 2016-11-11 04:01 | NUR ---
remains asleep, no tele beds available... monitor afib rate 70's
--- NOTE | 2016-11-11 04:12 | NUR ---
PT UNABLE TO IPOC, [facility]. PT REPORTS IN 1 CONVERSATION LIVES AT [facility] AND IN ANOTHER CONVERSATION HE DOES NOT LIVE AT [facility], CALL PLACED BY THIS [facility] ON 08-31 NO ANSWER.
--- NOTE | 2016-11-11 06:22 | NUR ---
CALL FROM SETH AT [facility] REQUESTS ADMISSION DX , SHE WAS ASKED IF PTS RESIDES AT [facility] PER OUTPATIENT FACILITY PHYSICAL THERAPIST SETH HE DOES.
--- NOTE | 2016-11-11 06:30 | NUR ---
PTT DRAWN AND SENT TO LAB BY [facility] STEV[facility]
--- NOTE | 2016-11-11 06:58 | NUR ---
DAUGHTER JADYN [phone] IF ANY CHANGES. REPORTS BEING PTS POA.
--- NOTE | 2016-11-11 08:00 | NUR ---
MEDICATED WITH SYNTHROID (SEE MAR)
[2016-11-11 08:27] LABS: PTT 78 SEC (25-37)
--- NOTE | 2016-11-11 08:36 | NUR ---
ASSISTED PT ON BED BLOOM.
--- NOTE | 2016-11-11 08:40 | NUR ---
PTT 78 - NO CHANGE WITH HEPARIN. NEXT DRAW IN 12 HOURS AT 1830
--- NOTE | 2016-11-11 08:58 | NUR ---
VTE PLACED ON PT.
--- NOTE | 2016-11-11 09:42 | NUR ---
LABS SENT TO LAB BY [facility].
--- NOTE | 2016-11-11 09:50 | NUR ---
HOUSE STAFF AT BEDSIDE.
[2016-11-11 10:01] LABS: ABSOLUTE BASOPHIL COUNT 0.1 /CUMM (0.0-0.2); ABSOLUTE EOSINOPHIL COUNT 0.2 /CUMM (0.0-0.7); ABSOLUTE GRANULOCYTE CT 3.8 /CUMM (1.4-6.5); ABSOLUTE LYMPH COUNT 1.7 /CUMM (1.2-3.4); ABSOLUTE MONOCYTE COUNT 0.8 /CUMM (0.10-0.60); BASOPHIL % 0.8 % (0.0-2.0); EOSINOPHIL % 3.1 % (0-5); GRANULOCYTE % 57.4 % (42.2-75.2); MEAN CORPUSCULAR HGB 29.8 PG (27.0-31.0); MEAN CORPUSCULAR HGB CONC 32.3 G/DL (33.0-37.0); MEAN CORPUSCULAR VOLUME 92.3 FL (81.0-99.0); MEAN PLATELET VOLUME 8.2 FL (7.4-10.4); PLATELET COUNT 196 /CUMM (130-400); RBC DISTRIBUTION WIDTH 12.7 % (11.5-14.5); RED BLOOD CELL CT 4.01 /CUMM (4.20-5.40); WHITE BLOOD CELL COUNT 6.6 /CUMM (4.8-10.8)
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
--- NOTE | 2016-11-11 10:19 | NUR ---
MEDICATED ORDERED (SEE MAR)
--- NOTE | 2016-11-11 11:27 | PN- Housestaff ---
Subjective Follow-up For: Chest pain New onset A. fib Acute heart failure Subjective: No overnight events. This morning patient is alert and awake. She is slightly confused. [id number] at bedside. Patient is complaining of mid chest pain , non radiating. She is also complaining of mild abdominal pain. Review of Systems Constitutional: Reports: see HPI. Objective Last 24 Hrs of Vital Signs/I&O Vital Signs Date Time Temp Pulse Resp B/P B/P Pulse O2 O2 Flow FiO2 Mean Ox Delivery Rate 11/11 1019 75 144/62 11/11 1019 75 144/62 11/11 1019 75 144/62 11/11 0609 96.5 75 18 144/62 97 Room Air 11/10 2205 97.4 67 18 147/72 94 Room Air 11/10 2002 97.8 67 18 138/65 96 Intake & Output 11/11 1600 11/11 0800 11/11 0000 Intake Total Output Total 320 320 Balance -320 -320 Output, Urine 320 320 Patient 150 lb 150 lb Weight Weight Estimated Measurement Method Physical Exam General Appearance: Alert, Cooperative, No Acute Distress Neck: Supple Cardiovascular: irregularly irregular Lungs: mild basal crackles, chest pain is reproducible. Soft tissue tenderness Abdomen: Normal Bowel Sounds, Soft, slight tenderness on palpation. Neurological: Sensation Intact, Cranial Nerves 3-12 NL Extremities: No Edema Current Medications: Current Medications Sig/Blanka Start time Last Medication Dose Route Stop Time Status Admin Acetaminophen 650 MG Q6P PRN 11/11 0130 AC PO Acetaminophen 1,000 MG Q6P PRN 11/11 0130 AC IV Amlodipine Besylate 5 MG DAILY 11/11 1000 AC 11/11 PO 1019 Aspirin Buffered 81 MG DAILY 11/11 1000 AC 11/11 PO 1019 Atenolol 25 MG DAILY 11/11 1000 AC 11/11 PO 1019 Atorvastatin Calcium 10 MG 1700 11/11 1700 AC PO Furosemide 0 .STK-MED ONE 11/11 0030 DC IV Furosemide 20 MG ONCE ONE 11/10 2314 DC 11/11 IV 11/11 2315 0037 Heparin Sodium 0 .STK-MED ONE 11/11 0030 DC (Porcine) .ROUTE Heparin Sodium 25,000 UNIT Q24H 11/10 2229 AC 11/11 (Porcine) IV 0037 Sodium Chloride 500 ML Heparin Sodium 5,000 UNIT ONCE ONE 11/10 2229 DC 11/11 (Porcine) IV 11/10 2230 0037 Levothyroxine Sodium 0.1 MG DAILY AC 11/11 0700 AC 11/11 PO 0755 Mirtazapine 15 MG QPM 11/11 2200 AC PO Morphine Sulfate 0.5 MG Q4P PRN 11/11 0130 AC IV Multivitamins 1 TAB DAILY 11/11 1000 AC 11/11 PO 1019 Ranolazine 500 MG BID 11/11 1000 AC 11/11 PO 1019 Sertraline HCl 50 MG DAILY 11/11 1000 AC 11/11 PO 1019 Trazodone HCl 50 MG TID 11/11 1000 AC 11/11 PO 1019 Last 24 Hrs of Lab/Jean-Pierre Results Last 24 Hrs of Labs/Mics: Laboratory Tests 11/11/16 0948: Anion Gap 7, Estimated GFR > 60, BUN/Creatinine Ratio 16.3, Troponin I < 0.01, CBC w Diff NO MAN DIFF REQ, RBC 4.01 L, MCV 92.3, MCH 29.8, RDW 12.7, MPV 8.2, Gran % 57.4, Lymphocytes % 26.1, Monocytes % 12.6 H, Eosinophils % 3.1, Basophils % 0.8, Absolute Granulocytes 3.8, Absolute Lymphocytes 1.7, Absolute Monocytes 0.8 H, Absolute Eosinophils 0.2, Absolute Basophils 0.1, PUBS MCHC 32.3 L 11/11/16 0630: APTT 78 H 11/11/16 0213: Troponin I < 0.01, Nct-K-Lybmahjwhyy Pept 1280 H 11/10/16 2245: Urine Color YEL, Urine Clarity HAZY H, Urine pH 6.0, Ur Specific [place] <= 1.005, Urine Protein NEG, Urine Ketones NEG, Urine Nitrite POS H, Urine Bilirubin NEG, Urine Urobilinogen 0.2, Ur Leukocyte Esterase LARGE H, Ur Microscopic SEDIMENT EXAMINED, Urine RBC RARE, Urine WBC 15-25 H, Ur Epithelial Cells FEW, Urine Bacteria MANY H, Hyaline Casts RARE H, Urine Mucus FEW, Urine Hemoglobin NEG, Urine Glucose NEG 11/10/162033: Anion Gap 12, Estimated GFR 60, BUN/Creatinine Ratio 15.6, Glucose 97, Calcium 9.0, Total Bilirubin 0.4, AST 15, ALT 33, Alkaline Phosphatase 103, Troponin I < 0.01, Total Protein 6.6, Albumin 3.6, Globulin 3.0, Albumin/Globulin Ratio 1.2, PT 11.9, INR 1.13, APTT 35, D-Dimer 345 H, CBC w Diff NO MAN DIFF REQ, RBC 3.92 L, MCV 92.0, MCH 30.4, RDW 13.0, MPV 8.3, Gran % 57.8, Lymphocytes % 26.8, Monocytes % 11.7 H, Eosinophils % 2.7, Basophils % 1.0, Absolute Granulocytes 4.6, Absolute Lymphocytes 2.1, Absolute Monocytes 0.9 H, Absolute Eosinophils 0.2, Absolute Basophils 0.1, PUBS MCHC 33.0 Microbiology 11/11 0040 URINE ROUT: Urine Culture - RECD Lines/Diet/Fluids Fluids/Infusions: heparin drip Assessment/Plan Assessment: 81-year-old woman with past medical history of hyperlipidemia, hypertension, CABG, right subclavian stenosis, hypothyroidism, ITP, colonic resection. Problem list 1. Mid chest pain. Reproducible with soft tissue tenderness. Seems unlikely cardiac related. ? Costochondritis. Troponins [address]-T wave changes. 2. New onset A. fib. On heparin drip. CHADSVASC2 score of 5. High Fall risk. We have to outweigh risks and benefits. 3. Acute Diastolic heart failure. Elevated proBNP. Chest x-ray findings suggestive of CHF. got IV lasix 20 mg x 1. Patient in negative fluid balance. 4. Urinary tract infection. + UA. Patient is not sure of any urinary symptoms. She is afebrile with normal WBC count. 5. Worsening dementia. Patient was very agitated in [facility] per daughter- in-law. PLAN * Monitor vitals closely * Keep oxygen saturation more than 92% * Monitor electrolytes daily. Keep potassium more than 4 and magnesium around 2 * Follow Echocardiogram * Cardio consult appreciated * repeat UA and follow urine culture * Ceftriaxone IV 1 for now. Will continue if repeat UA is positive for infection * will hold IV diuresis for now and assess later. * Discussed with family about risks and benefits of starting anticoagulation in the setting of high fall risk * We will repeat thyroid function tests, B12 and folate * Avoid constipation and dehydration * Frequent reorientations * Continue other home medications * DVT prophylaxis * PT evaluation and treatment * Full code Problem List: 1. New onset atrial fibrillation 2. Congestive heart failure Pain Ratin Pain Location: chest Pain Goal: Remain pain free Pain Plan: tylenol Tomorrow's Labs & Rationales: bep DVT/Prophylaxis: pharmacological Consulting Request: Consulting Specialty: Cardiology
--- NOTE | 2016-11-11 13:02 | NUR ---
PT INCONTINENT OF LARGE AMOUNT URINE. BED CHANGED
--- NOTE | 2016-11-11 13:12 | RADIOLOGY REPORT ---
EXAMINATION:\H\ \N\XR CHEST CLINICAL INFORMATION: CHF. COMPARISON: Chest x-ray done 11/10/2016. TECHNIQUE: AP portable semierect view of the chest was obtained. FINDINGS: The heart is normal in size. The inferior two sternotomy wires are fractured The lungs are symmetrically aerated. There is no sign of pulmonary vascular congestion or pulmonary edema. No pleural effusion is detected on this limited examination. IMPRESSION: No radiologic signs of CHF.
--- NOTE | 2016-11-11 13:43 | NUR ---
IV INFILTRATED - REMOVED AND NEW IV PLACED TO LT AC.
--- NOTE | 2016-11-11 15:58 | Admission Certification ---
Admission Certification Certification Statement - As attending physician, I certify that at the time of - admission, based on clinical presentation, severity of - symptoms, need for further diagnostic testing and - therapeutic interventions, and risk of adverse outcomes - without in-hospital treatment, in my clinical assessment, - this patient requires an acute hospital stay for a minimum - of two nights or longer. I have also considered psychsocial - factors such as support system, advanced age, financial - issues, cognitive issues, and failed out-patient treatments, - past re-admission history, safety of patient, and lack of - compliance as applicable. Specific rationale supporting this admission is: chf and newonset afib
--- NOTE | 2016-11-11 16:30 | NUR ---
PT MEDICATED WITH TRAZADONE 50MG PO AND LIPITOR 10MG PO
--- NOTE | 2016-11-11 16:37 | NUR ---
BED 178
--- NOTE | 2016-11-11 16:49 | NUR ---
REPORT CALLED TO KRAIG HERRERA. PT WILL BE TRANSPORTED TO FLOOR BY THIS RN WHEN OTHER RN RETURNS TO FLOOR
--- NOTE | 2016-11-11 17:13 | NUR ---
FOOD TRAY PROVIDED TO PT
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
[2016-11-11 18:10] VITALS: BP 148/62
[2016-11-11 20:23] LABS: PTT 69 SEC (25-37)
[2016-11-12 00:31] VITALS: BP 157/72
[2016-11-12 08:07] VITALS: BP 140/60
--- NOTE | 2016-11-12 08:27 | PN- Housestaff ---
Subjective Follow-up For: Chest pain New onset A. fib Acute Diastolic heart failure Tele-Events Since Last Visit: Atrial fibrillation PVCs Heart rate 67-97 Subjective: This morning patient is alert and awake but confused. No overnight telemetry events. She still complaining of dull chest pain on touching. She can also point to the area of pain with one finger. Review of Systems Constitutional: Reports: see HPI. Objective Last 24 Hrs of Vital Signs/I&O Vital Signs Date Time Temp Pulse Resp B/P B/P Pulse O2 O2 Flow FiO2 Mean Ox Delivery Rate 11/12 0951 74 140/60 11/12 0807 98.1 60 18 140/60 96 Room Air 11/12 0031 97.9 66 20 157/72 94 11/12 0000 Room Air 11/11 1810 98.5 63 18 148/62 94 11/11 1800 Room Air 11/11 1709 97.3 72 18 165/72 94 Room Air 11/11 1525 97.8 67 18 175/81 97 Room Air Intake & Output 11/12 1600 11/12 0800 11/12 0000 Intake Total 196 610 Output Total 2 Balance 196 608 Intake, IV 196 130 Intake, Oral 480 Number 1 Bowel Movements Output, Other 2 Patient 147 lb Weight Weight Chair scale Measurement Method Physical Exam General Appearance: Alert, Cooperative, No Acute Distress Skin: No Rashes Neck: Supple Cardiovascular: irregularly irregular Lungs: bilateral basal crackles Abdomen: Normal Bowel Sounds, Soft, No Tenderness Neurological: Normal Speech, Strength at 5/5 X4 Ext, Sensation Intact, Cranial Nerves 3-12 NL Extremities: No Edema Current Medications: Current Medications Sig/Blanka Start time Last Medication Dose Route Stop Time Status Admin Acetaminophen 650 MG Q6P PRN 11/11 0130 AC PO Amlodipine Besylate 5 MG DAILY 11/11 1000 AC 11/12 PO 0951 Aspirin Buffered 81 MG DAILY 11/11 1000 AC 11/12 PO 0951 Atenolol 25 MG DAILY 11/11 1000 AC 11/12 PO 0950 Atorvastatin Calcium 10 MG 1700 11/11 1700 AC 11/11 PO 1630 Ceftriaxone Sodium 0 .STK-MED ONE 11/11 1318 DC .ROUTE Furosemide 20 MG ONCE ONE 11/12 1015 DC 11/12 IV 11/12 1016 1032 Heparin Sodium 25,000 UNIT Q24H 11/10 2230 AC 11/12 (Porcine) IV 0857 Sodium Chloride 500 ML Levothyroxine Sodium 0.1 MG DAILY AC 11/11 0700 AC 11/12 PO 0625 Mirtazapine 15 MG QPM 11/11 2200 AC 11/11 PO 2236 Multivitamins 1 TAB DAILY 11/11 1000 AC 11/12 PO 0950 Ranolazine 500 MG BID 11/11 1000 AC 11/12 PO 0951 Sertraline HCl 50 MG DAILY 11/11 1000 AC 11/12 PO 0950 Trazodone HCl 0 .STK-MED ONE 11/11 1628 DC PO Trazodone HCl 50 MG TID 11/11 1000 AC 11/12 PO 0951 Last 24 Hrs of Lab/Jean-Pierre Results Last 24 Hrs of Labs/Mics: Laboratory Tests 11/12/16 0712: APTT 106 *H 11/11/16 1907: APTT 69 H Microbiology 11/12 0846 URINE ROUT: Urine Culture - COLB Assessment/Plan Assessment: 81-year-old woman with past medical history of hyperlipidemia, hypertension, CABG, right subclavian stenosis, hypothyroidism, ITP, colonic resection. Problem list 1. Chest discomfort. Reproducible with soft tissue tenderness. Seems unlikely cardiac related. ? Costochondritis. Troponins [address]-T wave changes. 2. New onset A. fib. On heparin drip. CHADSVASC2 score of 5. High Fall risk according to physical therapy evaluation. 3. Acute Diastolic heart failure. Elevated proBNP. on IV lasix 4. Urinary tract infection. Urine culture growing gram-negative rods. On IV ceftriaxone. PLAN * Monitor vitals closely * Keep oxygen saturation more than 92% * Monitor electrolytes daily. Keep potassium more than 4 and magnesium around 2 * Follow Echocardiogram * Cardio consult appreciated * Continue IV heparin drip for now. Need family discussion regarding risks and benefits of starting Oral anticoagulation. Per cardio patient is not a good candidate for Chronic oral anticoagulation. * Continue Ceftriaxone IV. Follow-up identification and sensitivities of gram- negative rods in urine culture * Continue mild diuresis daily * Avoid constipation and dehydration * Frequent reorientations * Continue other home medications * DVT prophylaxis * Contunue PT treatment * Full code Problem List: 1. New onset atrial fibrillation 2. Congestive heart failure Pain Ratin Pain Location: none Pain Goal: Remain pain free Pain Plan: tylenol Tomorrow's Labs & Rationales: bep DVT/Prophylaxis: pharmacological
--- NOTE | 2016-11-12 08:52 | Patient Discharge Instructions ---
Discharge Instructions General Discharge Information You were seen/treated for: New onset A. fib Acute diastolic heart failure Special Instructions: 1. Please follow-up with your primary care provider after discharge 2. Please follow-up with your medical social consultant after discharge Diet Recommended Diet: Heart Healthy Activity Activity Limited to: Walking with Assistance Acute Coronary Syndrome Inclusion Criteria At DC or during hospital stay patient has or had the following: ACS DIAGNOSIS No Discharge Core Measures Meds if any: Prescribed or Continued at Discharge Meds if any: NOT Prescribed or Continued at Discharge Congestive Heart Failure Inclusion Criteria At DC or during hospital stay patient has or had the following: CHF DIAGNOSIS Yes Discharge Core Measures Meds if any: Prescribed or Continued at Discharge Meds if any: NOT Prescribed or Continued at Discharge Cerebrovascular accident Inclusion Criteria At DC or during hospital stay patient has or had the following: CVA/TIA Diagnosis No Discharge Core Measures Meds if any: Prescribed or Continued at Discharge Meds if any: NOT Prescribed or Continued at Discharge Venous thromboembolism Inclusion Criteria VTE Diagnosis No VTE Type NONE VTE Confirmed by (Test) NONE Discharge Core Measures - Per Current guidelines, there needs to be overlap - treatment for the first 5 days of Warfarin therapy. - If discharged on Warfarin prior to 5 days of - overlap therapy, the patient will need to be - assessed for post discharge needs including - *Post discharge parental anticoagulation - *Warfarin and/or parental anticoagulation education - *Follow up date to check INR post discharge At least 5 days overlap therapy as Inpatient No Meds if any: Prescribed or Continued at Discharge Note: Overlap Therapy is Warfarin and Anticoagulant Meds if any: NOT Prescribed or Continued at Discharge
[2016-11-12 09:07] LABS: PTT 106 SEC (25-37)
--- NOTE | 2016-11-12 10:11 | PN- Cardiology ---
Subjective Subjective: The patient is awake, alert, confused The events of the last 24 hours as well as telemetry were reviewed. Review of Systems: The review of systems is negative for chest pains, palpitations nor lightheadedness. The remainder of the 14 point review of systems is noncontributory with the exception of above. Objective Vital Signs and I&Os Vital Signs Date Time Temp Pulse Resp B/P B/P Pulse O2 O2 Flow FiO2 Mean Ox Delivery Rate 11/12 0951 74 140/60 11/12 0807 98.1 60 18 140/60 96 Room Air 11/12 0031 97.9 66 20 157/72 94 11/12 0000 Room Air 11/11 1810 98.5 63 18 148/62 94 11/11 1800 Room Air 11/11 1709 97.3 72 18 165/72 94 Room Air 11/11 1525 97.8 67 18 175/81 97 Room Air 11/11 1019 75 144/62 11/11 1019 75 144/62 11/11 1019 75 144/62 Intake & Output 11/12 1600 11/12 0800 11/12 0000 11/11 1600 11/11 0800 11/11 0000 Intake Total 196 610 Output Total 2 520 320 Balance 196 608 -520 -320 Intake, IV 196 130 Intake, Oral 480 Number 1 Bowel Movements Output, Other 2 Output, Urine 520 320 Patient 147 lb 150 lb 150 lb Weight Weight Chair scale Estimated Measurement Method Physical Exam: General: Nontoxic, no apparent distress. HEENT: Sclera and conjunctiva within normal limits, without xanthelasmas. Neck: Carotids 2+ without bruits. Respiratory: Scattered rhonchi, air movement is decreased at bases, without accessory respiratory muscle use. Heart: Irregularly irregular rate and rhythm, 2-6 systolic ejection murmur. Or, without murmurs, without JVD. Abdomen: Soft, nontender, no masses, normoactive bowel sounds. Extremities: Without clubbing, cyanosis, without edema. Neuro: Nonfocal exam, strength, 5 out of 5 Skin: Within normal limits without lesions. Psych: Mood and affect: Normal; however confused Current Medications: Current Medications Sig/Blanka Start time Last Medication Dose Route Stop Time Status Admin Acetaminophen 650 MG Q6P PRN 11/11 129 AC PO Acetaminophen 1,000 MG Q6P PRN 05/22 0130 DC IV Amlodipine Besylate 5 MG DAILY 11/11 1000 AC 11/12 PO 0951 Aspirin Buffered 81 MG DAILY 11/11 1000 AC 11/12 PO 0951 Atenolol 25 MG DAILY 11/11 1000 AC 11/12 PO 0950 Atorvastatin Calcium 10 MG 1700 11/11 1700 AC 11/11 PO 1630 Ceftriaxone Sodium 0 .STK-MED ONE 11/11 1318 DC .ROUTE Ceftriaxone Sodium 1,000 MG ONCE ONE 11/11 1200 DC 11/11 IV 11/11 1201 1344 Furosemide 20 MG ONCE ONE 11/12 1015 UNVr IV 11/12 1016 Heparin Sodium 25,000 UNIT Q24H 11/10 2230 AC 11/12 (Porcine) IV 0857 Sodium Chloride 500 ML Levothyroxine Sodium 0.1 MG DAILY AC 11/11 0700 AC 11/12 PO 0625 Mirtazapine 15 MG QPM 11/11 2200 AC 11/11 PO 2236 Morphine Sulfate 0.5 MG Q4P PRN 11/11 0130 DC IV Multivitamins 1 TAB DAILY 11/11 1000 AC 11/12 PO 0950 Ranolazine 500 MG BID 11/11 1000 AC 11/12 PO 0951 Sertraline HCl 50 MG DAILY 11/11 1000 AC 11/12 PO 0950 Trazodone HCl 0 .STK-MED ONE 11/11 1628 DC PO Trazodone HCl 50 MG TID 11/11 1000 AC 11/12 PO 0951 Results Last 48 Hrs of Labs/Mics: Laboratory Tests 11/12/16 0712: APTT 106 *H 11/11/16 1907: APTT 69 H 11/11/16 1151: Urine Color Cancelled, Urine Clarity Cancelled, Urine pH Cancelled, Ur Specific [place] Cancelled, Urine Protein Cancelled, Urine Ketones Cancelled, Urine Nitrite Cancelled, Urine Bilirubin Cancelled, Urine Urobilinogen Cancelled, Ur Leukocyte Esterase Cancelled, Ur Microscopic Cancelled, Urine Hemoglobin Cancelled, Urine Glucose Cancelled 11/11/16 0948: Anion Gap 7, Estimated GFR > 60, BUN/Creatinine Ratio 16.3, Magnesium 1.9, Troponin I < 0.01, Vitamin B12 355, Folate 10.0, TSH 0.269 L, Free T4 1.59, CBC w Diff NO MAN DIFF REQ, RBC 4.01 L, MCV 92.3, MCH 29.8, RDW 12.7, MPV 8.2, Gran % 57.4, Lymphocytes % 26.1, Monocytes % 12.6 H, Eosinophils % 3.1, Basophils % 0.8, Absolute Granulocytes 3.8, Absolute Lymphocytes 1.7, Absolute Monocytes 0.8 H, Absolute Eosinophils 0.2, Absolute Basophils 0.1, PUBS MCHC 32.3 L 11/11/16 0630: APTT 78 H 11/11/16 0213: Troponin I < 0.01, Rhb-N-Tzsojmsjovy Pept 1280 H 11/10/16 2245: Urine Color YEL, Urine Clarity HAZY H, Urine pH 6.0, Ur Specific [place] <= 1.005, Urine Protein NEG, Urine Ketones NEG, Urine Nitrite POS H, Urine Bilirubin NEG, Urine Urobilinogen 0.2, Ur Leukocyte Esterase LARGE H, Ur Microscopic SEDIMENT EXAMINED, Urine RBC RARE, Urine WBC 15-25 H, Ur Epithelial Cells FEW, Urine Bacteria MANY H, Hyaline Casts RARE H, Urine Mucus FEW, Urine Hemoglobin NEG, Urine Glucose NEG 11/10/162033: Anion Gap 12, Estimated GFR 60, BUN/Creatinine Ratio 15.6, Glucose 97, Calcium 9.0, Total Bilirubin 0.4, AST 15, ALT 33, Alkaline Phosphatase 103, Troponin I < 0.01, Total Protein 6.6, Albumin 3.6, Globulin 3.0, Albumin/Globulin Ratio 1.2, PT 11.9, INR 1.13, APTT 35, D-Dimer 345 H, CBC w Diff NO MAN DIFF REQ, RBC 3.92 L, MCV 92.0, MCH 30.4, RDW 13.0, MPV 8.3, Gran % 57.8, Lymphocytes % 26.8, Monocytes % 11.7 H, Eosinophils % 2.7, Basophils % 1.0, Absolute Granulocytes 4.6, Absolute Lymphocytes 2.1, Absolute Monocytes 0.9 H, Absolute Eosinophils 0.2, Absolute Basophils 0.1, PUBS MCHC 33.0 Assessment/Plan Assessment/Plan 81-year-old woman with a past medical history of dementia, hypertension, hyperlipidemia, coronary artery disease (status post remote bypass surgery), peripheral vascular disease. She presented to our emergency room in transfer from her extended care facility secondary to symptoms of chest discomfort, and was found to be in atrial fibrillation (new onset) as well as evidence for mild congestive heart failure Atrial fibrillation: The patient has a significantly elevated MET2TR3-LBLm score and would benefit from anticoagulation; however, we will need to assess her overall fall risk as well. Her heart rate control is stable with her current medication regimen. Following evaluation by physical therapy, consideration for anticoagulation will be given Chest discomfort: The patient is currently ruling out for a myocardial infarction via serial troponin isoenzymes. We would prefer to maintain an overall conservative course of management, and as such, if no intervention would be planned, stress testing would not be initially recommended. We will attempt to increase her beta nneka regimen and may add long-acting nitrates if necessary. Vascular congestion on chest x-ray, elevated BNP: Given the patient's poor historian capabilities and the findings, there is evidence for acute congestive heart failure likely secondary to diastolic dysfunction (previous LV function was 60%) in the setting of atrial fibrillation. Continue mild diuresis Continue telemetry? Yes
--- NOTE | 2016-11-12 14:20 | NUR ---
NURSING NOTE; PT C/O 12/30 LEFT SIDED CHEST PAIN. UNDER BREAST RADIATING TO LEFT SHOULDER. DESCRIBES PAIN SHARP. MD MADE AWARE. STAT TROPONIN AND EKG ORDERED. PT CURRENTLY ON HEPARIN GTT PER PROTOCOL. FOLLOW UP LAB RESULTS.
[2016-11-12 14:22] VITALS: BP 148/60
[2016-11-12 15:40] LABS: PTT 51 SEC (25-37)
[2016-11-12 16:22] VITALS: BP 142/62
--- NOTE | 2016-11-12 16:49 | PN- Pulmonary ---
Subjective HPI/Critical Care Issues: Doing a little better Still has significant memory loss and confusion Continues to be on heparin Alert awake and oriented 3 Review of symptoms otherwise unremarkable Blood work reviewed Chest x-ray done yesterday showed no significant congestive heart failure Continues to be on heparin Blood work otherwise unremarkable Urine is growing gram probably Escherichia coli which she has had before Vital signs otherwise stable Objective Current Medications: Current Medications Sig/Blanka Start time Last Medication Dose Route Stop Time Status Admin Acetaminophen 650 MG Q6P PRN 11/11 0130 AC 11/12 PO 1509 Amlodipine Besylate 5 MG DAILY 11/11 1000 AC 11/12 PO 0951 Aspirin Buffered 81 MG DAILY 11/11 1000 AC 11/12 PO 0951 Atenolol 25 MG DAILY 11/11 1000 AC 11/12 PO 0950 Atorvastatin Calcium 10 MG 1700 11/11 1700 AC 11/11 PO 1630 Ceftriaxone Sodium 1,000 MG DAILY 11/12 1259 AC 11/12 IV 1452 Furosemide 20 MG ONCE ONE 11/12 1015 DC 11/12 IV 11/12 1016 1032 Heparin Sodium 2,000 UNIT ONCE ONE 11/12 1630 DC 11/12 (Porcine) IV 11/12 1631 1635 Heparin Sodium 25,000 UNIT Q24H 11/10 2230 AC 11/12 (Porcine) IV 0857 Sodium Chloride 500 ML Levothyroxine Sodium 0.1 MG DAILY AC 11/11 0700 AC 11/12 PO 0625 Magnesium Oxide 400 MG ONE ONE 11/12 1300 DC 11/12 PO 11/12 1301 1452 Mirtazapine 15 MG QPM 11/11 2200 AC 11/11 PO 2236 Multivitamins 1 TAB DAILY 11/11 1000 AC 11/12 PO 0950 Patient Medication 1 ED .STK-MED ONE 11/12 1409 DC Teaching ED 11/12 1410 Ranolazine 500 MG BID 11/11 1000 AC 11/12 PO 0951 Sertraline HCl 50 MG DAILY 11/11 1000 AC 11/12 PO 0950 Trazodone HCl 50 MG TID 11/11 1000 AC 11/12 PO 0951 Vital Signs & I&O Last 24 Hrs of Vitals and I&O: Vital Signs Date Time Temp Pulse Resp B/P B/P Pulse O2 O2 Flow FiO2 Mean Ox Delivery Rate 11/12 1622 98.8 71 18 142/62 96 Room Air 11/12 1422 69 148/60 11/12 0951 74 140/60 11/12 0807 98.1 60 18 140/60 96 Room Air 11/12 0031 97.9 66 20 157/72 94 11/12 0000 Room Air 11/11 1810 98.5 63 18 148/62 94 11/11 1800 Room Air 11/11 1709 97.3 72 18 165/72 94 Room Air Intake & Output 11/12 1600 11/12 0800 11/12 0000 Intake Total 487 196 610 Output Total 2 Balance 487 196 608 Intake, IV 87 196 130 Intake, Oral 400 480 Number 1 Bowel Movements Output, Other 2 Patient 147 lb Weight Weight Chair scale Measurement Method Impression/Plan Impression/Plan Impression/Plan: This is an 81-year-old lady with history of dementia, hypertension, hyperlipidemia, coronary artery disease status post remote CABG, peripheral vascular disease came in with chest discomfort, new onset atrial fibrillation with mild congestive heart failure issues include New-onset atrial fibrillation on appropriate anticoagulation followed by cardiology rate seems to be controlled Chest discomfort seems to be much improved patient is an unreliable historian no evidence suggestive of active coronary ischemia She does have vascular congestion with mild CHF this seems to be improving after diuresis She does have what appears to be a UTI as well which may have made her mental status to be different she is on ceftriaxone for that Plan Continue diuresis Discontinue intravenous antibiotics and switch her to by mouth Ceftin after the urine culture is final Continue other medications HEPARIN per cardiology all One more dose of Lasix
[2016-11-12 23:40] LABS: PTT 80 SEC (25-37)
[2016-11-13 00:20] VITALS: BP 124/68
--- NOTE | 2016-11-13 01:14 | NUR ---
HEART RATE DROPPING INTO THE 50'S WHILE SLEEPING. HEART RATE DROPPED LOW 48 BRIEFLY. PATIENT SLEEPING. BP 120/64. DR. ZIMMER NOTIFIED. NO FURTHER INTERVENTIONS ORDERED AT THIS TIME. WILL CONTINUE TO MONITOR.
--- NOTE | 2016-11-13 07:31 | PN- Housestaff ---
Subjective Follow-up For: Chest pain New onset A. priyank Acute Diastolic heart failure Tele-Events Since Last Visit: KirstenDavid priyank overnight heart rate in the range of 60-269 with PVCs bradycardia at around 1 AM overnight heart rate dropped to 50 Subjective: Patient is seen and examined today slept well denies any complaints overnight. No more chest discomfort or trouble breathing. Vitals are stable Review of Systems Constitutional: Denies: chills, diaphoresis, fever. EENTM: Denies: blurred vision, double vision, eye pain. Cardiovascular: Denies: chest pain, edema, orthopena. Respiratory: Denies: cough, hemoptysis, orthopnea. Gastrointestinal: Denies: abdominal pain, bloating, constipation. Genitourinary: Denies: frequency. Objective Last 24 Hrs of Vital Signs/I&O Vital Signs Date Time Temp Pulse Resp B/P B/P Pulse O2 O2 Flow FiO2 Mean Ox Delivery Rate 11/13 0958 67 120/70 11/13 0958 67 120/70 11/13 0957 67 120/70 11/13 0800 97.8 67 18 120/70 93 Room Air 11/13 0020 98.3 76 18 124/68 95 Room Air 11/12 2107 67 138/60 11/12 1622 98.8 71 18 142/62 96 Room Air 11/12 1600 96 Room Air 11/12 1422 69 148/60 Intake & Output 11/13 1600 11/13 0800 11/13 0000 Intake Total 100 600 Output Total Balance 100 600 Intake, Oral 100 600 Number 4 Bowel Movements Patient 145 lb Weight Weight Chair scale Measurement Method Physical Exam General Appearance: Alert, Oriented X3 Skin: No Rashes, No Breakdown Skin Temp/Moisture Exam: Warm/Dry Sepsis Skin Exam (color): Normal for Ethnicity, Cyanotic HEENT: Atraumatic, PERRLA Neck: Supple, No JVD Lymphatic: Axillary nl, Cervical nl Cardiovascular: Normal S1, Normal S2 Lungs: Clear to Auscultation, Normal Air Movement Abdomen: Normal Bowel Sounds, Soft, No Tenderness Neurological: Normal Speech, Strength at 5/5 X4 Ext Assessment/Plan Assessment: 81-year-old woman with past medical history of hyperlipidemia, hypertension, CABG, right subclavian stenosis, hypothyroidism, ITP, colonic resection. Problem list 1. Chest discomfort. Reproducible with soft tissue tenderness. Seems unlikely cardiac related. ? Costochondritis. Troponins [address]-T wave changes. 2. New onset A. fib. On heparin drip. CHADSVASC2 score of 5. High Fall risk according to physical therapy evaluation. 3. Acute Diastolic heart failure. Elevated proBNP. on IV lasix 4. Urinary tract infection. Urine culture growing gram-negative rods. On IV ceftriaxone. PLAN * Monitor vitals closely * Keep oxygen saturation more than 92% * Monitor electrolytes daily. Keep potassium more than 4 and magnesium around 2 * Echocardiogram is done showed Chest pain Normal left ventricle size wall thickness and systolic function. The estimated LVEF is 50-55%. There is mild septal dyssynchrony. Moderately dilated left atrial size. Heavily calcified mitral valve annulus with thickened and calcified eaflets. * Cardio consult appreciated * Continue IV heparin drip for now. Need family discussion regarding risks and benefits of starting Oral anticoagulation. Per cardio patient is not a good candidate for Chronic oral anticoagulation. * Continue Ceftriaxone IV for now we will switch her to by mouth Ceftin, after the urine culture final for total of 5-7 days * Continue mild diuresis daily * Avoid constipation and dehydration * Frequent reorientations * Continue other home medications * DVT prophylaxis * ContInue PT treatment. * Full code. Patient will be discharged to [facility] soon. Problem List: 1. Cellulitis 2. Arthritis 3. Unstable angina 4. New onset atrial fibrillation Pain Ratin Pain Location: No pain today Pain Goal: Remain pain free Pain Plan: When necessary Tylenol Tomorrow's Labs & Rationales: Bep tomorrow on lasix
[2016-11-13 08:00] VITALS: BP 120/70
--- NOTE | 2016-11-13 09:00 | ECHOCARDIOGRAM REPORT ---
DEEDEE MOROCHO Age: 81 : 1935 Gender: F Exam Date: 11/12/2016 19:41 Exam Location: [address] Ht (in): 59 Wt (lb): 147 BSA: 1.69 BP: 144 / 62 Ordering Physician: RAINA OLIVAS MD Referring Physician: Rashi Acosta M.D. Technologist: Isabel Parkinson [facility] Room Number: 178-01 Indications: AFIB/FLUTTER Rhythm: Technical Quality: FINDINGS Left Ventricle Normal left ventricle size wall thickness and systolic function. The estimated LVEF is 50-55%. There is mild septal dyssynchrony. Right Ventricle Normal appearing right ventricular size wall thickness and systolic function Right Atrium Normal appearing right atrium Left Atrium Moderately dilated left atrial size Mitral Valve Heavily calcified mitral valve annulus with thickened and calcified leaflets. There is no significant mitral stenosis. There is mild mitral regurgitation. Aortic Valve Calcified trileaflet aortic valve with adequate leaflet opening. There is mild aortic insufficiency. Tricuspid Valve Grossly normal appearing tricuspid valve leaflets structure and function. There is tricuspid annular calcification. There is mild tricuspid regurgitation Pulmonic Valve Suboptimally visualized; however, grossly normal pulmonic valvular leaflets structure and function Pericardium Normal pericardium Great Vessels Normal great vessels CONCLUSIONS Normal left ventricle size wall thickness and systolic function. The estimated LVEF is 50-55%. There is mild septal dyssynchrony. Moderately dilated left atrial size. Heavily calcified mitral valve annulus with thickened and calcified leaflets. There is no significant mitral stenosis. There is mild mitral regurgitation. There is mild aortic insufficiency. Rashi Acosta M.D. (Electronically Signed) Final Date: 13 Nov 2016 08:59 MEASUREMENTS (Male / Female) Normal Values 2D ECHO LV Diastolic Diameter PLAX 3.3 cm 4.2 - 5.9 / 3.9 - 5.3 cm LV Systolic Diameter PLAX 1.8 cm 2.1 - 4.0 cm LV Fractional Shortening PLAX 45.5 % 25 - 46 % LV Ejection Fraction 2D Teich 78.0 % IVS Diastolic Thickness 1.4 cm LVPW Diastolic Thickness 1.3 cm LV Relative Wall Thickness 0.8 RV Internal Dim ED PLAX 2.7 cm 1.9 - 3.8 cm LVOT Diameter 1.8 cm Aortic Root Diameter 2.9 cm LA Systolic Diameter LX 4.8 cm 3.0 - 4.0 / 2.7 - 3.8 cm LA Volume 52.0 cm 18 - 58 / 22 - 52 cm Ascending Aorta Diameter 3.2 cm DOPPLER AV Peak Velocity 123.0 cm/s AV Peak Gradient 6.1 mmHg AV Mean Velocity 92.5 cm/s AV Mean Gradient 4.0 mmHg AV Velocity Time Integral 28.9 cm LVOT Peak Velocity 83.5 cm/s LVOT Peak Gradient 2.8 mmHg LVOT Mean Velocity 58.9 cm/s LVOT Mean Gradient 2.0 mmHg LVOT Velocity Time Integral 20.5 cm LVOT Stroke Volume 52.2 cm AV Area Cont Eq vti 1.8 cm AV Area Cont Eq pk 1.7 cm MV Peak Velocity 115.0 cm/s MV Peak Gradient 5.3 mmHg MV Mean Velocity 61.5 cm/s MV Mean Gradient 2.0 mmHg Mitral E Point Velocity 104.0 cm/s MV PHT Velocity 119.0 cm/s MV Deceleration [place] 315.0 cm/s MV Pressure Half Time 113.3 ms MV Area PHT 1.9 cm MV Deceleration Time 296.0 ms TR Peak Velocity 235.0 cm/s TR Peak Gradient 22.1 mmHg Right Atrial Pressure 5.0 mmHg Pulmonary Artery Systolic Pressu 27.1 mmHg Right Ventricular Systolic Press 27.1 mmHg PV Peak Velocity 83.9 cm/s PV Peak Gradient 2.8 mmHg PV Mean Velocity 61.0 cm/s PV Mean Gradient 2.0 mmHg PV Velocity Time Integral 19.0 cm LV E' Lateral Velocity 7.1 cm/s Mitral E to LV E' Lateral Ratio 14.6 LV E' Septal Velocity 4.3 cm/s Mitral E to LV E' Septal Ratio 24.2
--- NOTE | 2016-11-13 09:32 | PN- Pulmonary ---
Subjective HPI/Critical Care Issues: Doing well afebrile No chest discomfort Memory loss ongoing Objective Current Medications: Current Medications Sig/Blanka Start time Last Medication Dose Route Stop Time Status Admin Acetaminophen 650 MG .STK-MED ONE 11/12 1506 DC PO 11/12 1507 Acetaminophen 650 MG Q6P PRN 11/11 0130 AC 11/12 PO 1509 Amlodipine Besylate 5 MG DAILY 11/11 1000 AC 11/12 PO 0951 Aspirin Buffered 81 MG DAILY 11/11 1000 AC 11/12 PO 0951 Atenolol 25 MG DAILY 11/11 1000 AC 11/12 PO 0950 Atorvastatin Calcium 10 MG 1700 11/11 1700 AC 11/12 PO 1644 Ceftriaxone Sodium 1,000 MG DAILY 11/12 1259 AC 11/12 IV 1452 Furosemide 20 MG ONCE ONE 11/13 1000 AC IV 11/13 1001 Furosemide 20 MG ONCE ONE 11/12 1015 DC 11/12 IV 11/12 1016 1032 Heparin Sodium 2,000 UNIT ONCE ONE 11/12 1630 DC 11/12 (Porcine) IV 11/12 1631 1635 Heparin Sodium 5,000 UNIT .STK-MED ONE 11/12 1613 DC (Porcine) IV 11/12 1614 Heparin Sodium 25,000 UNIT Q24H 11/10 2230 AC 11/12 (Porcine) IV 0857 Sodium Chloride 500 ML Levothyroxine Sodium 0.1 MG DAILY AC 11/11 0700 AC 11/13 PO 0631 Magnesium Oxide 400 MG ONE ONE 11/12 1300 DC 11/12 PO 11/12 1301 1452 Mirtazapine 15 MG QPM 11/11 2200 AC 11/12 PO 2108 Multivitamins 1 TAB DAILY 11/11 1000 AC 11/12 PO 0950 Patient Medication 1 ED .STK-MED ONE 11/12 1409 DC Teaching ED 11/12 1410 Ranolazine 500 MG BID 11/11 1000 AC 11/12 PO 2107 Sertraline HCl 50 MG DAILY 11/11 1000 AC 11/12 PO 0950 Trazodone HCl 50 MG TID 11/11 1000 AC 11/12 PO 2108 Vital Signs & I&O Last 24 Hrs of Vitals and I&O: Vital Signs Date Time Temp Pulse Resp B/P B/P Pulse O2 O2 Flow FiO2 Mean Ox Delivery Rate 11/13 0800 97.8 67 18 120/70 93 Room Air 11/13 0020 98.3 76 18 124/68 95 Room Air 11/12 2107 67 138/60 11/12 1622 98.8 71 18 142/62 96 Room Air 11/12 1600 96 Room Air 11/12 1422 69 148/60 11/12 0951 74 140/60 Intake & Output 11/13 1600 11/13 0800 11/13 0000 Intake Total 100 600 Output Total Balance 100 600 Intake, Oral 100 600 Number 4 Bowel Movements Patient 145 lb Weight Weight Chair scale Measurement Method Impression/Plan Impression/Plan Impression/Plan: This is an 81-year-old lady with history of dementia, hypertension, hyperlipidemia, coronary artery disease status post remote CABG, peripheral vascular disease came in with chest discomfort, new onset atrial fibrillation with mild congestive heart failure issues include * New-onset atrial fibrillation on appropriate anticoagulation followed by cardiology rate seems to be controlled * Chest discomfort seems to be much improved patient is an unreliable historian no evidence suggestive of active coronary ischemia * She does have vascular congestion with mild CHF this seems to be improving after diuresis * She does have what appears to be a UTI as well which may have made her mental status to be different she is on ceftriaxone for that * REcent worsening dementia * Previous recurrent falls Plan Continue diuresis gentle Discontinue intravenous antibiotics and switch her to by mouth Ceftin after the urine culture is final rx for 5-7 days Continue other medications HEPARIN per cardiology and pt may not be a good candidate for anticoag Lasix po qod prob from am Dc to will soon
[2016-11-13 10:53] LABS: PTT 69 SEC (25-37)
--- NOTE | 2016-11-13 10:56 | PN- Cardiology ---
Subjective Subjective: The patient is awake, alert, slightly less confused than previous The events of the last 24 hours as well as telemetry were reviewed. Review of Systems: The review of systems is negative for chest pains, palpitations nor lightheadedness. The remainder of the 14 point review of systems is noncontributory with the exception of above. Objective Vital Signs and I&Os Vital Signs Date Time Temp Pulse Resp B/P B/P Pulse O2 O2 Flow FiO2 Mean Ox Delivery Rate 11/13 0958 67 120/70 11/13 0958 67 120/70 11/13 0957 67 120/70 11/13 0800 97.8 67 18 120/70 93 Room Air 11/13 0020 98.3 76 18 124/68 95 Room Air 11/12 2107 67 138/60 11/12 1622 98.8 71 18 142/62 96 Room Air 11/12 1600 96 Room Air 11/12 1422 69 148/60 Intake & Output 11/13 1600 11/13 0800 11/13 0000 11/12 1600 11/12 0800 11/12 0000 Intake Total 100 600 487 196 610 Output Total 2 Balance 100 600 487 196 608 Intake, IV 87 196 130 Intake, Oral 100 600 400 480 Number 4 1 Bowel Movements Output, Other 2 Patient 145 lb 147 lb Weight Weight Chair scale Chair scale Measurement Method Physical Exam: General: Nontoxic, no apparent distress. HEENT: Sclera and conjunctiva within normal limits, without xanthelasmas. Neck: Carotids 2+ without bruits. Respiratory: Scattered rhonchi, air movement is good, without accessory respiratory muscle use. Heart: Irregularly irregular rate and rhythm, 2-6 systolic ejection murmur at left sternal border, without JVD. Abdomen: Soft, nontender, no masses, normoactive bowel sounds. Extremities: Without clubbing, cyanosis, without edema. Neuro: Nonfocal exam, strength, 5 out of 5 Skin: Within normal limits without lesions. Psych: Mood and affect: Normal Current Medications: Current Medications Sig/Blanka Start time Last Medication Dose Route Stop Time Status Admin Acetaminophen 650 MG .STK-MED ONE 11/12 1506 DC PO 11/12 1507 Acetaminophen 650 MG Q6P PRN 11/11 0130 AC 11/13 PO 0956 Amlodipine Besylate 5 MG DAILY 11/11 1000 AC 11/13 PO 0957 Aspirin Buffered 81 MG DAILY 11/11 1000 AC 11/13 PO 0957 Atenolol 25 MG DAILY 11/11 1000 AC 11/13 PO 0958 Atorvastatin Calcium 10 MG 1700 11/11 1700 AC 11/12 PO 1644 Ceftriaxone Sodium 1,000 MG DAILY 11/12 1259 AC 11/13 IV 0956 Furosemide 20 MG ONCE ONE 11/13 1000 DC 11/13 IV 11/13 1001 0957 Heparin Sodium 2,000 UNIT ONCE ONE 11/12 1630 DC 11/12 (Porcine) IV 11/12 1631 1635 Heparin Sodium 5,000 UNIT .STK-MED ONE 11/12 1613 DC (Porcine) IV 11/12 1614 Heparin Sodium 25,000 UNIT Q24H 11/10 2230 AC 11/12 (Porcine) IV 0857 Sodium Chloride 500 ML Levothyroxine Sodium 0.1 MG DAILY AC 11/11 0700 AC 11/13 PO 0631 Magnesium Oxide 400 MG ONE ONE 11/12 1300 DC 11/12 PO 11/12 1301 1452 Mirtazapine 15 MG QPM 11/11 2200 AC 11/12 PO 2108 Multivitamins 1 TAB DAILY 11/11 1000 AC 11/13 PO 0958 Patient Medication 1 ED .STK-MED ONE 11/12 1409 DC Teaching ED 11/12 1410 Ranolazine 500 MG BID 11/11 1000 AC 11/13 PO 0958 Sertraline HCl 50 MG DAILY 11/11 1000 AC 11/13 PO 0958 Trazodone HCl 50 MG TID 11/11 1000 AC 11/13 PO 0957 Results Last 48 Hrs of Labs/Mics: Laboratory Tests 11/13/16 1000: APTT Pending 11/12/16 2210: APTT 80 H 11/12/16 1445: Troponin I < 0.01, APTT 51 H 11/12/16 0712: APTT 106 *H 11/11/16 1907: APTT 69 H 11/11/16 1151: Urine Color Cancelled, Urine Clarity Cancelled, Urine pH Cancelled, Ur Specific [place] Cancelled, Urine Protein Cancelled, Urine Ketones Cancelled, Urine Nitrite Cancelled, Urine Bilirubin Cancelled, Urine Urobilinogen Cancelled, Ur Leukocyte Esterase Cancelled, Ur Microscopic Cancelled, Urine Hemoglobin Cancelled, Urine Glucose Cancelled Assessment/Plan Assessment/Plan 81-year-old woman with a past medical history of dementia, hypertension, hyperlipidemia, coronary artery disease (status post remote bypass surgery), peripheral vascular disease. She presented to our emergency room in transfer from her extended care facility secondary to symptoms of chest discomfort, and was found to be in atrial fibrillation (new onset) as well as evidence for mild congestive heart failure Atrial fibrillation: The patient has a significantly elevated [id number] score and would benefit from anticoagulation; however, we will need to assess her overall fall risk as well. Her heart rate control is stable with her current medication regimen. Following evaluation by physical therapy, consideration for anticoagulation will be given Chest discomfort: The patient is currently ruling out for a myocardial infarction via serial troponin isoenzymes. We would prefer to maintain an overall conservative course of management, and as such, if no intervention would be planned, stress testing would not be initially recommended. We will attempt to increase her beta nneka regimen and may add long-acting nitrates if necessary. Vascular congestion on chest x-ray, elevated BNP: Given the patient's poor historian capabilities and the findings, there is evidence for acute congestive heart failure likely secondary to diastolic dysfunction (previous LV function was 60%) in the setting of atrial fibrillation. Continue diuresis, targeting approx 500-100 cc net output Continue telemetry? Yes
[2016-11-13 15:33] VITALS: BP 112/70
[2016-11-13 22:49] LABS: PTT 62 SEC (25-37)
[2016-11-13 23:15] VITALS: BP 132/68
--- NOTE | 2016-11-14 07:15 | PN- Housestaff ---
Subjective Follow-up For: Chest pain New onset A. fib Acute Diastolic heart failure Complaints: no complaints Tele-Events Since Last Visit: PATIENT HAS 2 PAUSES 2.6 AND 3 SEC TODYA AROUND 9AM. Overnight 54 untill 64, a fib Subjective: I have seen and examined the patient today, she is doign good, no new complaints. however today morning around 9 am she had 2 puases one 3.2 secnds and other 2.6 second, will chekc mg with am labs, overngith telemetry she was between 54 and 64 a fib. Review of Systems Constitutional: Reports: see HPI. Objective Last 24 Hrs of Vital Signs/I&O Vital Signs Date Time Temp Pulse Resp B/P B/P Pulse O2 O2 Flow FiO2 Mean Ox Delivery Rate 11/14 0817 98.2 64 18 122/64 96 Room Air 11/13 2315 97.8 64 18 132/68 96 Room Air 11/13 2116 57 124/60 11/13 1533 97.8 63 18 112/70 94 Room Air 11/13 0958 67 120/70 11/13 0958 67 120/70 11/13 0957 67 120/70 Intake & Output 11/14 1600 11/14 0800 11/14 0000 Intake Total 158.8 584 Output Total 600 450 Balance -441.2 134 Intake, IV 108.8 104 Intake, Oral 50 480 Number 0 Bowel Movements Output, Urine 600 450 Patient 64.864 kg Weight Weight Chair scale Measurement Method Physical Exam General Appearance: Alert, Oriented X3, Cooperative, No Acute Distress Skin: No Rashes, No Breakdown Cardiovascular: Normal S1, Normal S2, No Murmurs, irregularly irregular Lungs: Clear to Auscultation, Normal Air Movement Abdomen: Normal Bowel Sounds, Soft, No Tenderness Extremities: No Clubbing, No Cyanosis, No Edema, Normal Pulses Vascular: Normal Pulses Current Medications: Current Medications Sig/Blanka Start time Last Medication Dose Route Stop Time Status Admin Acetaminophen 650 MG .STK-MED ONE 11/13 0851 DC PO 11/14 951 Acetaminophen 650 MG Q6P PRN 11/11 0130 AC 11/13 PO 0956 Amlodipine Besylate 5 MG DAILY 11/11 1000 AC 11/13 PO 09 Aspirin Buffered 81 MG DAILY 11/11 1000 AC 11/13 PO 09 Atenolol 25 MG DAILY 11/11 1000 AC 11/13 PO 0958 Atorvastatin Calcium 10 MG 1700 11/11 1700 AC 11/13 PO 1652 Ceftriaxone Sodium 1,000 MG DAILY 11/12 1259 AC 11/13 IV 0956 Furosemide 20 MG ONCE ONE 11/13 1000 DC 11/13 IV 11/13 1001 0957 Heparin Sodium 25,000 UNIT Q24H 11/10 2230 AC 11/13 (Porcine) IV 211 Sodium Chloride 500 ML Levothyroxine Sodium 0.1 MG DAILY AC 11/11 0700 AC 11/14 PO 22 Mirtazapine 15 MG QPM 11/11 2200 AC 11/13 PO 2112 Multivitamins 1 TAB DAILY 11/11 1000 AC 11/13 PO 957 Ranolazine 500 MG BID 11/11 1000 AC 11/13 PO 2115 Sertraline HCl 50 MG DAILY 11/11 1000 AC 11/13 PO 09 Trazodone HCl 50 MG TID 11/11 1000 AC 11/13 PO 2112 Last 24 Hrs of Lab/Jean-Pierre Results Last 24 Hrs of Labs/Mics: Laboratory Tests 11/14/16 0636: Anion Gap 8, Estimated GFR 60, BUN/Creatinine Ratio 16.7, Magnesium 2.0 11/13/16 2220: APTT 62 H 11/13/16 1130: Urine Color YEL, Urine Clarity HAZY H, Urine pH 6.5, Ur Specific [place] 1.010, Urine Protein NEG, Urine Ketones NEG, Urine Nitrite NEG, Urine Bilirubin NEG, Urine Urobilinogen 0.2, Ur Leukocyte Esterase LARGE H, Ur Microscopic SEDIMENT EXAMINED, Urine WBC 15-25 H, Ur Epithelial Cells FEW, Urine Bacteria RARE H, Hyaline Casts 3-5 H, Urine Hemoglobin NEG, Urine Glucose NEG 11/13/16 1000: APTT 69 H Microbiology 11/13 1130 URINE ROUT: Urine Culture - RECD Assessment/Plan Assessment: 81-year-old woman with past medical history of hyperlipidemia, hypertension, CABG, right subclavian stenosis, hypothyroidism, ITP, colonic resection. Problem list 1. Chest discomfort. : The only one that Reproducible with soft tissue tenderness. Seems unlikely cardiac related. ? Costochondritis. Troponins [address]-T wave changes. 2. New onset A. fib. On heparin drip. CHADSVASC2 score of 5. High Fall risk according to physical therapy evaluation, will have to consider risk v/s benefit prior to starting AC, will touch base with family today. 3. Acute Diastolic heart failure. Elevated proBNP,WILL SWITCH TO PO LASIX EOD 4. Urinary tract infection. Urine culture growing gram-negative rods. On IV ceftriaxone. PLAN * Monitor vitals closely * Keep oxygen saturation more than 92% * Monitor electrolytes daily. Keep potassium more than 4 and magnesium around 2 * Echocardiogram is done showed Chest pain Normal left ventricle size wall thickness and systolic function. The estimated LVEF is 50-55%. There is mild septal dyssynchrony. Moderately dilated left atrial size. Heavily calcified mitral valve annulus with thickened and calcified eaflets. * Cardio consult appreciated * Continue IV heparin drip for now. Need family discussion regarding risks and benefits of starting Oral anticoagulation. Per cardio patient is not a good candidate for Chronic oral anticoagulation. * Continue Ceftriaxone IV for now we will switch her to by mouth Ceftin, after the urine culture final for total of 5-7 days * Continue mild diuresis daily * Avoid constipation and dehydration * Frequent reorientations * Continue other home medications * DVT prophylaxis * ContInue PT treatment. * Full code. Patient will be discharged to [facility] soon. Problem List: 1. Congestive heart failure 2. New onset atrial fibrillation 3. Unstable angina Pain Ratin Pain Location: back Pain Goal: Remain pain free Pain Plan: current plan ct Tomorrow's Labs & Rationales: cbc monitoring Discharge Plan Discharge Disposition: STR/NH Stable for Discharge? Yes Anticipated Discharge (Day): today If Discharged Today/In 24 Hrs: CMR done
--- NOTE | 2016-11-14 07:20 | PN- Housestaff ---
Subjective Review of Systems Constitutional: Reports: see HPI. Objective Last 24 Hrs of Vital Signs/I&O Vital Signs Date Time Temp Pulse Resp B/P B/P Pulse O2 O2 Flow FiO2 Mean Ox Delivery Rate 11/13 2315 97.8 64 18 132/68 96 Room Air 11/13 2116 57 124/60 11/13 1533 97.8 63 18 112/70 94 Room Air 11/13 0958 67 120/70 11/13 0958 67 120/70 11/13 0957 67 120/70 11/13 0800 97.8 67 18 120/70 93 Room Air Intake & Output 11/14 0800 11/14 0000 11/13 1600 Intake Total 158.8 584 508.8 Output Total 600 450 100 Balance -441.2 134 408.8 Intake, IV 108.8 104 108.8 Intake, Oral 50 480 400 Number 0 0 Bowel Movements Output, Urine 600 450 100 Patient 65.771 kg Weight Current Medications: Current Medications Sig/Blanka Start time Last Medication Dose Route Stop Time Status Admin Acetaminophen 650 MG .STK-MED ONE 11/13 0951 DC PO 11/13 0952 Acetaminophen 650 MG Q6P PRN 11/11 0130 AC 11/13 PO 0956 Amlodipine Besylate 5 MG DAILY 11/11 1000 AC 11/13 PO 0957 Aspirin Buffered 81 MG DAILY 11/11 1000 AC 11/13 PO 0957 Atenolol 25 MG DAILY 11/11 1000 AC 11/13 PO 0958 Atorvastatin Calcium 10 MG 1700 11/11 1700 AC 11/13 PO 1652 Ceftriaxone Sodium 1,000 MG DAILY 11/12 1259 AC 11/13 IV 0956 Furosemide 20 MG ONCE ONE 11/13 1000 DC 11/13 IV 11/13 1001 0957 Heparin Sodium 25,000 UNIT Q24H 11/10 2230 AC 11/13 (Porcine) IV 2113 Sodium Chloride 500 ML Levothyroxine Sodium 0.1 MG DAILY AC 11/11 0700 AC 11/14 PO 621 Mirtazapine 15 MG QPM 11/11 2200 AC 11/13 PO 211 Multivitamins 1 TAB DAILY 11/11 1000 AC 11/13 PO 0958 Ranolazine 500 MG BID 11/11 1000 AC 11/13 PO 211 Sertraline HCl 50 MG DAILY 11/11 1000 AC 11/13 PO 0958 Trazodone HCl 50 MG TID 11/11 1000 AC 11/13 PO 2112 Last 24 Hrs of Lab/Jean-Pierre Results Last 24 Hrs of Labs/Mics: Laboratory Tests 11/14/16 0636: Sodium Pending, Potassium Pending, Chloride Pending, Carbon Dioxide Pending, Anion Gap Pending, BUN Pending, Creatinine Pending, BUN/Creatinine Ratio Pending 11/13/16 2220: APTT 62 H 11/13/16 1130: Urine Color YEL, Urine Clarity HAZY H, Urine pH 6.5, Ur Specific [place] 1.010, Urine Protein NEG, Urine Ketones NEG, Urine Nitrite NEG, Urine Bilirubin NEG, Urine Urobilinogen 0.2, Ur Leukocyte Esterase LARGE H, Ur Microscopic SEDIMENT EXAMINED, Urine WBC 15-25 H, Ur Epithelial Cells FEW, Urine Bacteria RARE H, Hyaline Casts 3-5 H, Urine Hemoglobin NEG, Urine Glucose NEG 11/13/16 1000: APTT 69 H Microbiology 11/13 1130 URINE ROUT: Urine Culture - RECD
[2016-11-14 08:17] VITALS: BP 122/64
[2016-11-14] MEDS ORDERED: CEFUROXIME250 M1 PO (08:58)
--- NOTE | 2016-11-14 10:04 | NUR ---
pt had 2.6 and 3.[address] am[address] Dr Valentine aware. No orders given. Pt asymptomatic.
--- NOTE | 2016-11-14 10:54 | PN- Pulmonary ---
See Addendum Subjective HPI/Critical Care Issues: I have seen and examined the patient today, she is doign good, no new complaints. however today morning around 9 am she had 2 pauses one 3.2 secnds and other 2.6 second, on tele pafib with hr aroudn 60 Review of Systems Constitutional: Reports: see HPI. Objective Current Medications: Current Medications Sig/Blanka Start time Last Medication Dose Route Stop Time Status Admin Acetaminophen 650 MG Q6P PRN 11/11 0130 AC 11/13 PO 0956 Amlodipine Besylate 5 MG DAILY 11/11 1000 AC 11/14 PO 0956 Aspirin Buffered 81 MG DAILY 11/11 1000 AC 11/14 PO 0956 Atenolol 25 MG DAILY 11/11 1000 AC 11/14 PO 0956 Atorvastatin Calcium 10 MG 1700 11/11 1700 AC 11/13 PO 1652 Ceftriaxone Sodium 1,000 MG DAILY 11/12 1259 AC 11/14 IV 0956 Heparin Sodium 25,000 UNIT Q24H 11/10 2230 AC 11/13 (Porcine) IV 2113 Sodium Chloride 500 ML Levothyroxine Sodium 0.1 MG DAILY AC 11/11 0700 AC 11/14 PO 0622 Mirtazapine 15 MG QPM 11/11 2200 AC 11/13 PO 2113 Multivitamins 1 TAB DAILY 11/11 1000 AC 11/14 PO 0956 Ranolazine 500 MG BID 11/11 1000 AC 11/14 PO 0956 Sertraline HCl 50 MG DAILY 11/11 1000 AC 11/14 PO 0956 Trazodone HCl 50 MG TID 11/11 1000 AC 11/14 PO 0956 Laboratory Tests 11/14 11/14 11/13 11/13 1020 0636 2220 1130 Chemistry Sodium (137 - 145 mmol/L) 140 Potassium (3.5 - 5.1 mmol/L) 3.7 Chloride (98 - 107 mmol/L) 105 Carbon Dioxide (22 - 30 mmol/L) 26 Anion Gap (5 - 16) 8 BUN (7 - 17 mg/dL) 15 Creatinine (0.5 - 1.0 mg/dL) 0.9 Estimated GFR (>60 ml/min) 60 BUN/Creatinine Ratio (7 - 25 %) 16.7 Magnesium (1.6 - 2.3 mg/dL) 2.0 Coagulation APTT (25 - 37 SEC) Pending 62 H Urines Urine Color (YEL,AMB,STR) YEL Urine Clarity (CLEAR) HAZY H Urine pH (5.0 - 8.0) 6.5 Ur Specific [place] (1.001 - 1.035) 1.010 Urine Protein (NEG,<30 MG/DL) NEG Urine Ketones (NEG) NEG Urine Nitrite (NEG) NEG Urine Bilirubin (NEG) NEG Urine Urobilinogen (0.1 - 1.0 EU/dl) 0.2 Ur Leukocyte Esterase (NEG) LARGE H Ur Microscopic SEDIMENT EXAMINED Urine WBC (0 - 2 /HPF) 15-25 H Ur Epithelial Cells (NONE,FEW) FEW Urine Bacteria (NEG/NONE) RARE H Hyaline Casts (0/LPF) 3-5 H Urine Hemoglobin (NEG) NEG Urine Glucose (N MG/DL) NEG 11/13 11/12 11/12 1000 2210 1445 Chemistry Troponin I (< 0.11 ng/ml) < 0.01 Coagulation APTT (25 - 37 SEC) 69 H 80 H 51 H Microbiology Date/Time Procedure - Status Source Growth 11/13 1130 Urine Culture - RES URINE ROUT GRAM POSITIVE COCCI 11/12 1930 Clostridium difficile Toxin A & B - COMP STOOL Vital Signs & I&O Last 24 Hrs of Vitals and I&O: Vital Signs Date Time Temp Pulse Resp B/P B/P Pulse O2 O2 Flow FiO2 Mean Ox Delivery Rate 11/14 0956 128/70 11/14 0956 128/70 11/14 0956 128/70 11/14 0817 98.2 64 18 122/64 96 Room Air 11/13 2315 97.8 64 18 132/68 96 Room Air 11/13 2116 57 124/60 11/13 1533 97.8 63 18 112/70 94 Room Air Intake & Output 11/14 1600 11/14 0800 11/14 0000 Intake Total 158.8 584 Output Total 600 450 Balance -441.2 134 Intake, IV 108.8 104 Intake, Oral 50 480 Number 0 Bowel Movements Output, Urine 600 450 Patient 143 lb Weight Weight Chair scale Measurement Method Impression/Plan Impression/Plan Impression/Plan: This is an 81-year-old lady with history of dementia, hypertension, hyperlipidemia, coronary artery disease status post remote CABG, peripheral vascular disease came in with chest discomfort, new onset atrial fibrillation with mild congestive heart failure issues include * New-onset atrial fibrillation on appropriate anticoagulation followed by cardiology rate seems to be controlled * Chest discomfort seems to be much improved patient is an unreliable historian no evidence suggestive of active coronary ischemia * She does have vascular congestion with mild CHF this seems to be improving after diuresis * She does have what appears to be a UTI as well which may have made her mental status to be different she is on ceftriaxone for that * REcent worsening dementia * Previous recurrent falls Plan Continue diuresis gentle po ceftin 250 for two more days Continue other medications Hold atenolol HEPARIN per cardiology and pt may not be a good candidate for anticoag Lasix po qod prob from am Replace potassium
[2016-11-14 11:42] LABS: PTT 59 SEC (25-37)
--- NOTE | 2016-11-14 12:12 | PN- Cardiology ---
Subjective Subjective: Patient resting comfortably. Remains a somewhat limited historian. Complains of some pain at the IV sites but otherwise no new complaints. Objective Vital Signs and I&Os Vital Signs Date Time Temp Pulse Resp B/P B/P Pulse O2 O2 Flow FiO2 Mean Ox Delivery Rate 11/14 0956 128/70 11/14 0956 128/70 11/14 0956 128/70 11/14 0817 98.2 64 18 122/64 96 Room Air 11/13 2315 97.8 64 18 132/68 96 Room Air 11/13 2116 57 124/60 11/13 1533 97.8 63 18 112/70 94 Room Air Intake & Output 11/14 1600 11/14 0800 11/14 0000 11/13 1600 11/13 0800 11/13 0000 Intake Total 158.8 584 508.8 100 600 Output Total 600 450 100 Balance -441.2 134 408.8 100 600 Intake, IV 108.8 104 108.8 Intake, Oral 50 480 400 100 600 Number 0 0 4 Bowel Movements Output, Urine 600 450 100 Patient 143 lb 145 lb 145 lb Weight Weight Chair scale Chair scale Measurement Method Physical Exam: General: no apparent distress. Alert. Eyes: No obvious scleral icterus. HEENT: No jugular venous distention or abnormal jugular venous pulsations. Cardiovascular: Normal intensity S1/S2. Irregular. Respiratory: Lungs clear to auscultation bilaterally. Abdomen: Soft, nontender with no guarding or rebound tenderness. Musculoskeletal: No clubbing or cyanosis noted, no edema Skin: warm Lymph: No gross lymphadenopathy. Current Medications: Current Medications Sig/Blanka Start time Last Medication Dose Route Stop Time Status Admin Acetaminophen 650 MG Q6P PRN 11/11 0130 AC 11/13 PO 0956 Amlodipine Besylate 5 MG DAILY 11/11 1000 AC 11/14 PO 0956 Aspirin Buffered 81 MG DAILY 11/11 1000 AC 11/14 PO 0956 Atenolol 25 MG DAILY 11/11 1000 AC 11/14 PO 0956 Atorvastatin Calcium 10 MG 1700 11/11 1700 AC 11/13 PO 1652 Ceftriaxone Sodium 1,000 MG DAILY 11/12 1259 AC 11/14 IV 0956 Heparin Sodium 25,000 UNIT Q24H 11/10 2229 AC 11/13 (Porcine) IV 2112 Sodium Chloride 500 ML Levothyroxine Sodium 0.1 MG DAILY AC 11/11 0700 AC 11/14 PO 0622 Mirtazapine 15 MG QPM 11/11 2200 AC 11/13 PO 2113 Multivitamins 1 TAB DAILY 11/11 1000 AC 11/14 PO 0956 Ranolazine 500 MG BID 11/11 1000 AC 11/14 PO 0956 Sertraline HCl 50 MG DAILY 11/11 1000 AC 11/14 PO 0956 Trazodone HCl 50 MG TID 11/11 1000 AC 11/14 PO 0956 Results Last 48 Hrs of Labs/Mics: Laboratory Tests 11/14/16 1020: APTT 59 H 11/14/16 0636: Anion Gap 8, Estimated GFR 60, BUN/Creatinine Ratio 16.7, Magnesium 2.0 11/13/16 2220: APTT 62 H 11/13/16 1130: Urine Color YEL, Urine Clarity HAZY H, Urine pH 6.5, Ur Specific [place] 1.010, Urine Protein NEG, Urine Ketones NEG, Urine Nitrite NEG, Urine Bilirubin NEG, Urine Urobilinogen 0.2, Ur Leukocyte Esterase LARGE H, Ur Microscopic SEDIMENT EXAMINED, Urine WBC 15-25 H, Ur Epithelial Cells FEW, Urine Bacteria RARE H, Hyaline Casts 3-5 H, Urine Hemoglobin NEG, Urine Glucose NEG 11/13/16 1000: APTT 69 H 11/12/16 2210: APTT 80 H 11/12/16 1445: Troponin I < 0.01, APTT 51 H Microbiology 11/12 1930 STOOL: Clostridium difficile Toxin A & B - COMP Recent Imaging Studies: Telemetry tracings were personally reviewed and shows atrial fibrillation with grossly controlled ventricular response rate and no prolonged pauses Assessment/Plan Assessment/Plan 1. New onset atrial fibrillation 2. Dementia 3. Atypical chest discomfort with negative troponins 4. Hypertension/hyperlipidemia/PVD 5. CAD with prior CABG 6. Diastolic CHF, mild Patient remains a limited historian but is resting comfortably. She remains on intravenous heparin. Her last CBC was on 11/11. Recommend rechecking to make sure her hemoglobin has not been decreasing on full intravenous anticoagulation. From a cardiac standpoint she does meet indication for long-term anticoagulation given her elevated [id number] score. Would defer to her family if they are agreeable to long-term anticoagulation with novel oral anticoagulants. Heart rate is reasonably well-controlled on current beta nneka with only minor pauses on telemetry. The patient is currently euvolemic on exam, recommend Lasix 20 mg PO every other day. Vince Martinez MD [facility] Continue telemetry? Yes
[2016-11-14 15:30] VITALS: BP 102/68
[2016-11-14 19:10] LABS: PTT 65 SEC (25-37)
[2016-11-14 23:25] VITALS: BP 120/66
--- NOTE | 2016-11-15 06:22 | PN- Housestaff ---
Subjective Follow-up For: unstable angina Review of Systems Constitutional: Reports: see HPI. Objective Last 24 Hrs of Vital Signs/I&O Vital Signs Date Time Temp Pulse Resp B/P B/P Pulse O2 O2 Flow FiO2 Mean Ox Delivery Rate 11/14 2324 98.3 76 16 120/66 92 Room Air 11/14 2101 63 118/62 11/14 1530 98.4 71 16 102/68 95 Room Air 11/14 0956 128/70 11/14 0956 128/70 11/14 0956 128/70 11/14 0817 98.2 64 18 122/64 96 Room Air Intake & Output 11/15 0800 11/15 0000 11/14 1600 Intake Total 610.4 700 Output Total 100 400 Balance 510.4 300 Intake, IV 130.4 100 Intake, Oral 480 600 Output, Urine 100 400 Physical Exam General Appearance: Alert, Oriented X3, Cooperative, No Acute Distress Current Medications: Current Medications Sig/Blanka Start time Last Medication Dose Route Stop Time Status Admin Acetaminophen 650 MG Q6P PRN 11/11 0130 AC 11/13 PO 0956 Amlodipine Besylate 5 MG DAILY 11/11 1000 AC 11/14 PO 0956 Aspirin Buffered 81 MG DAILY 11/11 1000 AC 11/14 PO 0956 Atenolol 25 MG DAILY 11/11 1000 AC 11/14 PO 0956 Atorvastatin Calcium 10 MG 1700 11/11 1700 AC 11/14 PO 1706 Ceftriaxone Sodium 1,000 MG DAILY 11/12 1259 AC 11/14 IV 0956 Furosemide 20 MG Q48 11/16 1000 AC PO Heparin Sodium 25,000 UNIT Q24H 11/10 2230 AC 11/15 (Porcine) IV 0523 Sodium Chloride 500 ML Levothyroxine Sodium 0.1 MG DAILY AC 11/11 0700 AC 11/15 PO 0523 Mirtazapine 15 MG QPM 11/11 2200 AC 11/14 PO 2100 Multivitamins 1 TAB DAILY 11/11 1000 AC 11/14 PO 0956 Patient Medication 1 ED .STK-MED ONE 11/14 1346 DC Teaching ED 11/14 1347 Ranolazine 500 MG BID 11/11 1000 AC 11/14 PO 2101 Sertraline HCl 50 MG DAILY 11/11 1000 AC 11/14 PO 0956 Trazodone HCl 50 MG TID 11/11 1000 AC 11/14 PO 2100 Last 24 Hrs of Lab/[place] Results Last 24 Hrs of Labs/Mics: Laboratory Tests 11/14/16 1800: APTT 65 H 11/14/16 1020: APTT 59 H 11/14/16 0636: Anion Gap 8, Estimated GFR 60, BUN/Creatinine Ratio 16.7, Magnesium 2.0 Assessment/Plan Assessment: 81-year-old woman with past medical history of hyperlipidemia, hypertension, CABG, right subclavian stenosis, hypothyroidism, ITP, colonic resection. Problem list 1. Chest discomfort. : The only one that Reproducible with soft tissue tenderness. Seems unlikely cardiac related. ? Costochondritis. Troponins [address]-T wave changes. Echocardiogram is done showed Chest pain Normal left ventricle size wall thickness and systolic function. The estimated LVEF is 50-55%. There is mild septal dyssynchrony. Moderately dilated left atrial size. Heavily calcified mitral valve annulus with thickened and calcified eaflets. 2. New onset A. fib. On heparin drip. CHADSVASC2 score of 5. High Fall risk according to physical therapy evaluation, will have to consider risk v/s benefit prior to starting AC, will touch base with family today. 3. Acute Diastolic heart failure. Elevated proBNP,WILL SWITCH TO PO LASIX EOD 4. Urinary tract infection. Urine culture growing gram-negative rods. On IV ceftriaxone - day 4 Continue Ceftriaxone IV for now we will switch her to by mouth Ceftin, after the urine culture final for total of 5-7 days Patient anticipated discharge today to [place]. Problem List: 1. Chest pain, atypical 2. Unstable angina Pain Ratin Pain Location: none Pain Goal: Remain pain free Pain Plan: current mx Tomorrow's Labs & Rationales: not needed as patient stable for DC. Discharge Plan Discharge Disposition: STR/NH Stable for Discharge? Yes Anticipated Discharge (Day): today If Discharged Today/In 24 Hrs: CMR done
[2016-11-15 08:06] LABS: ABSOLUTE BASOPHIL COUNT 0.1 /CUMM (0.0-0.2); ABSOLUTE EOSINOPHIL COUNT 0.3 /CUMM (0.0-0.7); ABSOLUTE GRANULOCYTE CT 6.2 /CUMM (1.4-6.5); ABSOLUTE LYMPH COUNT 2.2 /CUMM (1.2-3.4); ABSOLUTE MONOCYTE COUNT 1.1 /CUMM (0.10-0.60); BASOPHIL % 0.6 % (0.0-2.0); GRANULOCYTE % 62.7 % (42.2-75.2); MEAN CORPUSCULAR HGB 30.2 PG (27.0-31.0); MEAN CORPUSCULAR HGB CONC 32.7 G/DL (33.0-37.0); MEAN CORPUSCULAR VOLUME 92.2 FL (81.0-99.0); MEAN PLATELET VOLUME 9.1 FL (7.4-10.4); PLATELET COUNT 180 /CUMM (130-400); RBC DISTRIBUTION WIDTH 12.9 % (11.5-14.5); RED BLOOD CELL CT 4.23 /CUMM (4.20-5.40); WHITE BLOOD CELL COUNT 9.9 /CUMM (4.8-10.8)
[2016-11-15 08:22] VITALS: BP 142/56
[2016-11-15 08:25] LABS: PTT 80 SEC (25-37)
--- NOTE | 2016-11-15 10:35 | PN- Pulmonary ---
Subjective HPI/Critical Care Issues: DOing well afebrile Objective Current Medications: Current Medications Sig/Blanka Start time Last Medication Dose Route Stop Time Status Admin Acetaminophen 650 MG Q6P PRN 11/11 0130 AC 11/13 PO 0956 Amlodipine Besylate 5 MG DAILY 11/11 1000 AC 11/15 PO 1031 Aspirin Buffered 81 MG DAILY 11/11 1000 AC 11/15 PO 1031 Atenolol 25 MG DAILY 11/11 1000 AC 11/15 PO 1031 Atorvastatin Calcium 10 MG 1700 11/11 1700 AC 11/14 PO 1706 Ceftriaxone Sodium 1,000 MG DAILY 11/12 1259 AC 11/15 IV 1031 Furosemide 20 MG Q48 11/16 1000 AC PO Heparin Sodium 25,000 UNIT Q24H 11/10 2230 AC 11/15 (Porcine) IV 0523 Sodium Chloride 500 ML Levothyroxine Sodium 0.1 MG DAILY AC 11/11 0700 AC 11/15 PO 0523 Mirtazapine 15 MG QPM 11/11 2200 AC 11/14 PO 2100 Multivitamins 1 TAB DAILY 11/11 1000 AC 11/15 PO 1031 Patient Medication 1 ED .STK-MED ONE 11/14 1346 DC Teaching ED 11/14 1347 Ranolazine 500 MG BID 11/11 1000 AC 11/15 PO 1031 Sertraline HCl 50 MG DAILY 11/11 1000 AC 11/15 PO 1031 Trazodone HCl 50 MG TID 11/11 1000 AC 11/15 PO 1031 Vital Signs & I&O Last 24 Hrs of Vitals and I&O: Vital Signs Date Time Temp Pulse Resp B/P B/P Pulse O2 O2 Flow FiO2 Mean Ox Delivery Rate 11/15 1031 144/70 11/15 1031 144/70 11/15 1031 144/70 11/15 0822 98.4 68 18 142/56 95 Room Air 11/14 2325 98.3 76 16 120/66 92 Room Air 11/14 2101 63 118/62 11/14 1530 98.4 71 16 102/68 95 Room Air Intake & Output 11/15 1600 11/15 0800 11/15 0000 Intake Total 368 610.4 Output Total 350 100 Balance 18 510.4 Intake, IV 128 130.4 Intake, Oral 240 480 Output, Urine 350 100 Impression/Plan Impression/Plan Impression/Plan: This is an 81-year-old lady with history of dementia, hypertension, hyperlipidemia, coronary artery disease status post remote CABG, peripheral vascular disease came in with chest discomfort, new onset atrial fibrillation with mild congestive heart failure issues include * New-onset atrial fibrillation on appropriate anticoagulation followed by cardiology rate seems to be controlled * Chest discomfort seems to be much improved patient is an unreliable historian no evidence suggestive of active coronary ischemia * She does have vascular congestion with mild CHF this seems to be improving after diuresis * She does have what appears to be a UTI as well which may have made her mental status to be different she is on ceftriaxone for that * REcent worsening dementia * Previous recurrent falls Plan Continue diuresis gentle po ceftin 250 for one more days Continue other medications Atenolol per Cardio Dc anticoag and cont asa, and pt has fallen multiple time lately requiring er visits etc. and discussed with the daugther and they have decided against systemic anticoag as the risks outwt the benefit Lasix po qod prob from am Potassium with lasix
--- NOTE | 2016-11-15 11:02 | PN- Cardiology ---
Subjective Subjective: The patient is awake, alert The events of the last 24 hours as well as telemetry were reviewed. Review of Systems: The review of systems is negative for chest pains, palpitations nor lightheadedness. The remainder of the 14 point review of systems is noncontributory with the exception of above. Objective Vital Signs and I&Os Vital Signs Date Time Temp Pulse Resp B/P B/P Pulse O2 O2 Flow FiO2 Mean Ox Delivery Rate 11/15 1031 144/70 11/15 1031 14470 11/15 1031 144/70 11/15 0822 98.4 68 18 142/56 95 Room Air 11/14 2325 98.3 76 16 120/66 92 Room Air 11/14 2101 63 118/62 11/14 1530 98.4 71 16 102/68 95 Room Air Intake & Output 11/15 1600 11/15 0811/15 0000 11/14 1600 11/14 0800 11/14 0000 Intake Total 368 610.4 700 158.8 584 Output Total 350 100 400 600 450 Balance 18 510.4 300 -441.2 134 Intake, IV 128 130.4 100 108.8 104 Intake, Oral 240 480 600 50 480 Number 0 Bowel Movements Output, Urine 350 100 400 600 450 Patient 143 lb Weight Weight Chair scale Measurement Method Physical Exam: General: Nontoxic, no apparent distress. HEENT: Sclera and conjunctiva within normal limits, without xanthelasmas. Neck: Carotids 2+ without bruits. Respiratory: Scattered rhonchi, air movement is good, without accessory respiratory muscle use. Heart: Regular rate and rhythm, 2/6 systolic ejection murmur at left sternal border, without JVD. Abdomen: Soft, nontender, no masses, normoactive bowel sounds. Extremities: Without clubbing, cyanosis, without edema. Neuro: Nonfocal exam, strength, 5 out of 5 Skin: Within normal limits without lesions. Psych: Mood and affect: Normal Current Medications: Current Medications Sig/Blanka Start time Last Medication Dose Route Stop Time Status Admin Acetaminophen 650 MG Q6P PRN 11/11 0130 AC 11/13 PO 0956 Amlodipine Besylate 5 MG DAILY 11/11 1000 AC 11/15 PO 1031 Aspirin Buffered 81 MG DAILY 11/11 1000 AC 11/15 PO 1031 Atenolol 25 MG DAILY 11/11 1000 AC 11/15 PO 1031 Atorvastatin Calcium 10 MG 1700 11/11 1700 AC 11/14 PO 1706 Ceftriaxone Sodium 1,000 MG DAILY 11/12 1259 AC 11/15 IV 1031 Furosemide 20 MG Q48 11/16 1000 AC PO Heparin Sodium 25,000 UNIT Q24H 11/10 2230 AC 11/15 (Porcine) IV 0523 Sodium Chloride 500 ML Levothyroxine Sodium 0.1 MG DAILY AC 11/11 0700 AC 11/15 PO 0523 Mirtazapine 15 MG QPM 11/11 2200 AC 11/14 PO 2100 Multivitamins 1 TAB DAILY 11/11 1000 AC 11/15 PO 1031 Patient Medication 1 ED .STK-MED ONE 11/14 1346 DC Teaching ED 11/14 1347 Ranolazine 500 MG BID 11/11 1000 AC 11/15 PO 1031 Sertraline HCl 50 MG DAILY 11/11 1000 AC 11/15 PO 1031 Trazodone HCl 50 MG TID 11/11 1000 AC 11/15 PO 1031 Results Last 48 Hrs of Labs/Mics: Laboratory Tests 11/15/16 0615: Anion Gap 9, Estimated GFR > 60, BUN/Creatinine Ratio 17.1, APTT 80 H, CBC w Diff NO MAN DIFF REQ, RBC 4.23, MCV 92.2, MCH 30.2, RDW 12.9, MPV 9.1, Gran % 62.7, Lymphocytes % 22.7, Monocytes % 11.0 H, Eosinophils % 3.0, Basophils % 0.6, Absolute Granulocytes 6.2, Absolute Lymphocytes 2.2, Absolute Monocytes 1.1 H, Absolute Eosinophils 0.3, Absolute Basophils 0.1, PUBS MCHC 32.7 L 11/14/16 1800: APTT 65 H 11/14/16 1020: APTT 59 H 11/14/16 0636: Anion Gap 8, Estimated GFR 60, BUN/Creatinine Ratio 16.7, Magnesium 2.0 11/13/16 2220: APTT 62 H 11/13/16 1130: Urine Color YEL, Urine Clarity HAZY H, Urine pH 6.5, Ur Specific [place] 1.010, Urine Protein NEG, Urine Ketones NEG, Urine Nitrite NEG, Urine Bilirubin NEG, Urine Urobilinogen 0.2, Ur Leukocyte Esterase LARGE H, Ur Microscopic SEDIMENT EXAMINED, Urine WBC 15-25 H, Ur Epithelial Cells FEW, Urine Bacteria RARE H, Hyaline Casts 3-5 H, Urine Hemoglobin NEG, Urine Glucose NEG Assessment/Plan Assessment/Plan 81-year-old woman with a past medical history of dementia, hypertension, hyperlipidemia, coronary artery disease (status post remote bypass surgery), peripheral vascular disease. She presented to our emergency room in transfer from her extended care facility secondary to symptoms of chest discomfort, and was found to be in atrial fibrillation (new onset) as well as evidence for mild congestive heart failure Atrial fibrillation: The patient has a significantly elevated [id number] score and would benefit from anticoagulation; however, we will need to assess her overall fall risk as well. Her heart rate control is stable with her current medication regimen. Following evaluation by physical therapy, consideration for anticoagulation will be given Chest discomfort: The patient has ruled out for a myocardial infarction via serial troponin isoenzymes. We will maintain a conservative course of therapy. Vascular congestion on chest x-ray, elevated BNP: The patient currently appears euvolemic and we will attempt to maintain such. Daily weights should be followed as well as reinforcing CHF guidelines. Continue telemetry? No
[2016-11-15 14:19] VITALS: BP 144/70
--- NOTE | 2016-11-15 17:06 | Event Note ---
Event Note Event Note: * patient was sent home on lasix EOD as per cardio. * cmr was finalised, therefore changes not reflected on CMR. * A separate script was provided and details were added in DC summary. * The staff nurse will also sign out to Rehabilitation nurse when they call for report. * Discussed with patient and nurse.
== END 2016-11-15 17:25 | DRG 308 ==
LOC: ERH 19:55 → 1NO 11-11 01:32 → ERHI 11-11 01:32 → ENRESERV 11-11 16:21 → ENTRNSPT 11-11 16:58 → 1NO 11-11 17:55 → CMPTRNSPT 11-12 07:09 → 1NO 11-13 08:46 → ENPENDDIS 11-15 13:15 → 1NO 11-15 17:25
PROVIDERS: Internal Medicine; Pediatrics; Student in an Organized Health Care Education/Training Program; ADMIT Internal Medicine Pulmonary Disease
DX: I48.91 Unspecified atrial fibrillation (principal); I50.31 Acute diastolic (congestive) heart failure; D69.3 Immune thrombocytopenic purpura; I11.0 Hypertensive heart disease with heart failure; F03.90 Unspecified dementia, unspecified severity, without behavioral disturbance, psychotic disturbance, mood disturbance, and anxiety; N39.0 Urinary tract infection, site not specified; Z95.1 Presence of aortocoronary bypass graft; I73.9 Peripheral vascular disease, unspecified; E03.9 Hypothyroidism, unspecified; R07.89 Other chest pain; F32.9 Major depressive disorder, single episode, unspecified; F41.9 Anxiety disorder, unspecified; I25.10 Atherosclerotic heart disease of native coronary artery without angina pectoris; E78.5 Hyperlipidemia, unspecified
CPT/HCPCS: 1NP; 36415; 81001; 82436; 87086; 87147; 93005; 93010; 93306; 96374; 96375; 97110-GO; 97116-GO; 97161-GP; 99291; J0696; J1644; J1940